=== PATIENT | male | born 1935 | race Caucasian/White ===

== ENCOUNTER 2017-11-29 08:25 | Inpatient (IN) | payer MEDICARE, OTHER ==
[2017-11-29] MEDS ORDERED: Acetaminophen 500 MG Tab PO PRN (12:29)
[2017-11-29] MEDS ORDERED: Nitroglycerin 0.4 MG Tab.SL SL PRN (12:30)
[2017-11-29] MEDS: Aspirin 325 MG Tab.EC PO SCH (17:24)
[2017-11-29] MEDS: Insulin Aspart 100 Units/ML 3 ML Pen SUBCUT SCH (17:24)
[2017-11-29] MEDS ORDERED: Insulin Detemir 100 Units/ML 3 ML Pen SUBCUT ONE (21:00)
[2017-11-29] MEDS: Docusate Sodium 100 MG Cap PO SCH (21:03)
[2017-11-29] MEDS: atorvaSTATin 10 MG Tab PO SCH (21:04)
[2017-11-29] MEDS: Fluticasone Propionate Nasal Spray 16 GM Bottle NASBOTH SCH (21:04)
[2017-11-29] MEDS: Metoprolol Tartrate 25 MG Tab PO SCH (21:05)
[2017-11-29] MEDS: Acetaminophen/HYDROcodone 325-5 MG Tab PO PRN (21:18)
[2017-11-30] MEDS: Acetaminophen/HYDROcodone 325-5 MG Tab PO PRN ×4 (04:38→21:44)
[2017-11-30] MEDS: Pantoprazole 40 MG Tab.CR PO SCH (07:01)
[2017-11-30] MEDS: Insulin Aspart 100 Units/ML 3 ML Pen SUBCUT SCH ×3 (07:56→17:31)
[2017-11-30] MEDS: Aspirin 325 MG Tab.EC PO SCH ×2 (07:57→17:31)
[2017-11-30] MEDS: Docusate Sodium 100 MG Cap PO SCH ×2 (08:34→21:43)
[2017-11-30] MEDS: Metoprolol Tartrate 25 MG Tab PO SCH ×2 (08:34→21:43)
[2017-11-30] MEDS: Potassium Chloride 10 MEQ Tab.ER PO SCH (08:34)
[2017-11-30] MEDS: Furosemide 40 MG Tab PO SCH (08:34)
[2017-11-30] MEDS: Lisinopril 5 MG Tab PO SCH (08:35)
[2017-11-30] MEDS ORDERED: Aspirin 81 MG Tab.EC PO SCH (09:00)
[2017-11-30] MEDS ORDERED: Ezetimibe 10 MG Tab PO SCH (09:00)
[2017-11-30] MEDS: Fluticasone Propionate Nasal Spray 16 GM Bottle NASBOTH SCH (21:43)
[2017-11-30] MEDS: atorvaSTATin 10 MG Tab PO SCH (21:43)
[2017-11-30] MEDS: Insulin Detemir 100 Units/ML 3 ML Pen SUBCUT SCH (21:48)
[2017-12-01] MEDS: Acetaminophen/HYDROcodone 325-5 MG Tab PO PRN ×3 (07:20→23:07)
[2017-12-01] MEDS: Pantoprazole 40 MG Tab.CR PO SCH (07:20)
[2017-12-01] MEDS: Docusate Sodium 100 MG Cap PO SCH ×2 (08:29→21:13)
[2017-12-01] MEDS: Potassium Chloride 10 MEQ Tab.ER PO SCH (08:29)
[2017-12-01] MEDS: Aspirin 325 MG Tab.EC PO SCH ×2 (08:29→17:43)
[2017-12-01] MEDS: Furosemide 40 MG Tab PO SCH (08:29)
[2017-12-01] MEDS: Metoprolol Tartrate 25 MG Tab PO SCH ×2 (08:29→21:15)
[2017-12-01] MEDS: Insulin Aspart 100 Units/ML 3 ML Pen SUBCUT SCH ×3 (08:29→17:43)
[2017-12-01] MEDS: Lisinopril 5 MG Tab PO SCH (08:30)
--- NOTE | 2017-12-01 11:24 | PN ---
DATE SEEN: 12/01/2017 HISTORY OF PRESENT ILLNESS: Mr. Gooden is an 82-year-old male in swing bed for rehab, right total knee arthroplasty, doing well. Pain is controlled. LABORATORIES: None of significance. ANTICOAGULANT THERAPY: 2 aspirin daily. OBJECTIVE: VITAL SIGNS: 37.2, 76, 151/80, 18, and 94%. GENERAL: In good spirits. NECK: Benign. Thyroid small. CHEST: Clear in all lung esparza. HEART: Regularly irregular. ABDOMEN: Benign. EXTREMITIES: Wound healing without difficulty, ecchymoses appropriate. IMPRESSION: Postoperative care, wound surveillance, rehab, right total knee arthroplasty. PLAN: Medications, care and treatment appropriate. No changes required. Continue present therapy and plans. /[id number] [id number] DANELLE/BONI
[2017-12-01] MEDS: Fluticasone Propionate Nasal Spray 16 GM Bottle NASBOTH SCH (21:13)
[2017-12-01] MEDS: atorvaSTATin 10 MG Tab PO SCH (21:13)
[2017-12-01] MEDS: Insulin Detemir 100 Units/ML 3 ML Pen SUBCUT SCH (21:16)
[2017-12-02] MEDS: Pantoprazole 40 MG Tab.CR PO SCH (06:49)
[2017-12-02] MEDS: Acetaminophen/HYDROcodone 325-5 MG Tab PO PRN ×4 (06:51→21:02)
[2017-12-02] MEDS: Insulin Aspart 100 Units/ML 3 ML Pen SUBCUT SCH ×3 (08:14→17:55)
[2017-12-02] MEDS: Docusate Sodium 100 MG Cap PO SCH ×2 (08:21→20:59)
[2017-12-02] MEDS: Aspirin 325 MG Tab.EC PO SCH ×2 (08:21→17:57)
[2017-12-02] MEDS: Potassium Chloride 10 MEQ Tab.ER PO SCH (08:22)
[2017-12-02] MEDS: Furosemide 40 MG Tab PO SCH (08:23)
[2017-12-02] MEDS: Metoprolol Tartrate 25 MG Tab PO SCH ×2 (08:23→21:00)
[2017-12-02] MEDS: Lisinopril 5 MG Tab PO SCH (08:24)
--- NOTE | 2017-12-02 10:44 | HP ---
ADMISSION DATE: 11/29/2017 HISTORY OF PRESENT ILLNESS: Nazario Gooden is an 82-year-old male, [place] resident, who was admitted in transfer from [facility] in [place]. Underwent elective right total knee arthroplasty on 11/26/2017 under the care of Dr. Oliva. Preoperative indications are appropriate, discharged in good condition. To be admitted to [facility] for rehab purposes. Happy with surgery. Outcome was good. Pain today 2 out of 3. HOME MEDICATIONS: Please see med recall list. ALLERGIES: No medication, environmental, or latex allergies. PAST MEDICAL HISTORY: Significant for previous right rotator cuff tear and a biopsy of a right neck lesion, by report benign. He has had a previous remote hand fracture. Chronic illnesses include insulin-dependant type 2 diabetes mellitus, hyperlipidemia, hyperurecemia, compensated congestive heart failure. History of intermittent atrial fibrillation, Coumadin therapy prior to surgery. SOCIAL HISTORY: Retired. is 74. 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 Three boys, 2 daughters, 12 grandchildren. Smoked remotely, quit in 1976. Alcohol, an issue in the past, not at present. No illicit drug use. FAMILY HISTORY: Unremarkable. REVIEW OF SYSTEMS: CONSTITUTIONAL: Feeling generally well. Little weak and tired. EYES: Sees well. EARS: Some difficulty in crowds, mild tinnitus. OROPHARYNX: Intact dentition. No loose teeth. CHEST: No cough, wheeze, or congestion. CARDIOVASCULAR: Denies chest pain, palpitations, or syncope. GI: Stools are a little bit loose. : Nocturia x1. No blood in urine. SKIN: No open sores or lesions. ENDOCRINE: No excessive thirst, urination, diabetes on board. PSYCHIATRIC: Mood stable. PHYSICAL EXAMINATION: VITAL SIGNS: Stable. Weight is 103.8 kg, 36.8 degrees Fahrenheit, pulse 79, blood pressure 148/83, mean blood pressure 104, O2 saturation 95% on room air, respirations 18. GENERAL: Young man, cooperative, conversant, sitting in his wheelchair. HEENT: Funduscopic benign. Conjunctivae clear. Bright tympanic membranes. Decreased hearing. Clear nasal discharge. Mouth and oropharynx clear. Fair dentition. NECK: Benign. Thyroid is small. Previous surgical scar well healed. No adenopathy. No carotid bruits. CHEST: Clear in all lung esparza. HEART: Distant heart sounds. Soft murmur present. ABDOMEN: Rotund without masses. AND RECTAL: Deferred. EXTREMITIES: Knee high SHANI stockings in place, peripheral pulses diminished but present. Sterile dressing over the right surgical knee wound, minimal ecchymosis. PSYCHIATRIC: Mentation thought process intact. LABORATORY STUDIES: EKG to be performed to assess rhythm. ASSESSMENT: 1. Right total knee arthroplasty, postoperative care. 2. Diabetes mellitus. 3. Hypertension. 4. Hyperlipidemia. 5. Compensated congestive heart failure. 6. Previous right rotator cuff tear. 7. Intermittent atrial fibrillation. PLAN: Spoke with the discharging physician from [facility] about postoperative DVT prophylaxis. Dr. Oliva made it clear to the discharge provider that he wanted aspirin only for the 1st week and then Coumadin to be started at the end 1 week's time. We will do so according to plans. Other medications are adjusted accordingly, insulin on board. Therapy at present. Complementary care and well being. Short-term stay expected. /[id number] 2011 DANELLE/BONI Cc: Grace Tam.
--- NOTE | 2017-12-02 10:44 | PN ---
DATE SEEN: 11/30/2017 SUBJECTIVE: Nazario Gooden is an 82-year-old, male, seen today for review. Underwent total knee arthroplasty on 11/26/2017 at [facility]. Upon admission, his stated pain was 2 or 3. Doing well in the meantime. LABORATORY STUDIES OF SIGNIFICANCE: Sugars are comfortable at 110, 131, 46. MEDS: Reviewed and appropriate. OBJECTIVE: VITAL SIGNS: Stable. 36.4, 85, 139/79, 20, and 95%. GENERAL: In good spirits. CHEST: Clear. HEART: Regular. ABDOMEN: Benign. EXTREMITIES: Knee without pain. Dressing in place. Mild ecchymoses. SHANI stocking in place. ASSESSMENT: Swing bed care, total knee arthroplasty. PLAN: PT, OT. Complementary care and well being. Ice, analgesics as appropriate. Aspirin 325 b.i.d. Postoperative recommendations per Surgery, restart Coumadin next Saturday, i.e. 1 week postop. /[id number] 1153 /BONI
[2017-12-02] MEDS: Polyethylene Glycol 3350 Powder 17 GM Packet PO SCH (11:03)
--- NOTE | 2017-12-02 11:39 | PN ---
DATE SEEN: 12/02/2017 SUBJECTIVE: Nazario Gooden is an 82-year-old male, admitted to swing bed status post right total knee arthroplasty, doing well. Up ambulating, reasonably comfortable. PT and OT consult in place. OBJECTIVE: VITAL SIGNS: Stable. SKIN: Wound was without conflict. Moderate ecchymosis and edema. DIAGNOSIS: Total knee arthroplasty, rehab. PLAN: PT, OT, the patient requests addition of MiraLax for constipation. Complementary care and well being. /[id number] [id number] 1131 /RENL
[2017-12-02] MEDS: Fluticasone Propionate Nasal Spray 16 GM Bottle NASBOTH SCH (20:59)
[2017-12-02] MEDS: atorvaSTATin 10 MG Tab PO SCH (21:01)
[2017-12-02] MEDS: Insulin Detemir 100 Units/ML 3 ML Pen SUBCUT SCH (21:02)
[2017-12-03] MEDS: Acetaminophen/HYDROcodone 325-5 MG Tab PO PRN ×4 (06:21→21:43)
[2017-12-03] MEDS: Pantoprazole 40 MG Tab.CR PO SCH (06:21)
[2017-12-03] MEDS: Docusate Sodium 100 MG Cap PO SCH ×2 (08:07→21:27)
[2017-12-03] MEDS: Furosemide 40 MG Tab PO SCH (08:07)
[2017-12-03] MEDS: Potassium Chloride 10 MEQ Tab.ER PO SCH (08:07)
[2017-12-03] MEDS: Aspirin 325 MG Tab.EC PO SCH (08:07)
[2017-12-03] MEDS: Lisinopril 5 MG Tab PO SCH (08:08)
[2017-12-03] MEDS: Polyethylene Glycol 3350 Powder 17 GM Packet PO SCH (08:08)
[2017-12-03] MEDS: Metoprolol Tartrate 25 MG Tab PO SCH ×2 (08:08→21:28)
[2017-12-03] MEDS: Insulin Aspart 100 Units/ML 3 ML Pen SUBCUT SCH ×3 (08:09→17:42)
--- NOTE | 2017-12-03 13:42 | PN ---
DATE SEEN: 12/03/2017 SUBJECTIVE: Nazario Gooden is an 82-year-old male, status post right total knee arthroplasty. Procedure, 11/26/2017, [facility]. Doing well. There has been a moderate amount of redness on the lateral and medial aspect, extending dorsally. No particular complaints. Warm to touch. Infection of clinical concern. Transfer from aspirin to Coumadin will happen today, he has been on 5 mg 5 days per week and 2.5 two days per week. Therapy is happy with clinical observation. LABORATORY STUDIES: Sugars 149, 144, 158, 179, and 119. MEDICATIONS: Reviewed and appropriate. OBJECTIVE: As noted above, cellulitis resolved appearing. ASSESSMENT: Right total knee arthroplasty. Superficial infection. PLAN: Not systemically ill, intravenous antibiotics not indicated, oral antibiotics will proceed accordingly. Coumadin as instructed. /[id number] 1213 DANELLE/BONI
[2017-12-03] MEDS: Warfarin 5 MG Tab PO SCH (16:36)
[2017-12-03] MEDS: atorvaSTATin 10 MG Tab PO SCH (21:27)
[2017-12-03] MEDS: Fluticasone Propionate Nasal Spray 16 GM Bottle NASBOTH SCH (21:27)
[2017-12-03] MEDS: Insulin Detemir 100 Units/ML 3 ML Pen SUBCUT SCH (21:35)
[2017-12-04] MEDS: Acetaminophen/HYDROcodone 325-5 MG Tab PO PRN ×4 (05:38→19:56)
[2017-12-04] MEDS: Insulin Aspart 100 Units/ML 3 ML Pen SUBCUT SCH ×3 (08:10→17:59)
[2017-12-04] MEDS: Furosemide 40 MG Tab PO SCH (09:32)
[2017-12-04] MEDS: Potassium Chloride 10 MEQ Tab.ER PO SCH (09:32)
[2017-12-04] MEDS: Metoprolol Tartrate 25 MG Tab PO SCH ×2 (09:32→21:17)
[2017-12-04] MEDS: Polyethylene Glycol 3350 Powder 17 GM Packet PO SCH (09:32)
[2017-12-04] MEDS: Aspirin 81 MG Tab.EC PO SCH (09:32)
[2017-12-04] MEDS: Docusate Sodium 100 MG Cap PO SCH ×2 (09:32→21:22)
[2017-12-04] MEDS: Lisinopril 5 MG Tab PO SCH (09:33)
[2017-12-04] MEDS ORDERED: Warfarin Sliding Scale PO SCH (10:00)
--- NOTE | 2017-12-04 12:08 | PN ---
DATE SEEN: 12/04/2017 SUBJECTIVE: Mr. Gooden is an 82-year-old male, seen today for review. Underwent right total knee arthroplasty, 11/26/2017, doing well. Therapy is happy with outcome. Moderate redness seems to be subsiding, antibiotics on board. LABORATORY STUDIES: Glucose 192. PHYSICAL EXAMINATION: CHEST: Clear. HEART: Regular. ABDOMEN: Benign. Surgical site looks intact. IMPRESSION: Right total knee arthroplasty, no signs of complicated infection, on Coumadin therapy. PLAN: Medications, care, and treatment appropriate, intervention and care as required. /[id number] [id number] 1148 DANELLE/BONI
[2017-12-04] MEDS: Warfarin 5 MG Tab PO SCH (16:44)
[2017-12-04] MEDS: atorvaSTATin 10 MG Tab PO SCH (21:21)
[2017-12-04] MEDS: Fluticasone Propionate Nasal Spray 16 GM Bottle NASBOTH SCH (21:22)
[2017-12-04] MEDS: Insulin Detemir 100 Units/ML 3 ML Pen SUBCUT SCH (21:22)
[2017-12-05] MEDS: Acetaminophen/HYDROcodone 325-5 MG Tab PO PRN ×5 (00:37→20:36)
[2017-12-05] MEDS: Potassium Chloride 10 MEQ Tab.ER PO SCH (10:11)
[2017-12-05] MEDS: Aspirin 81 MG Tab.EC PO SCH (10:11)
[2017-12-05] MEDS: Docusate Sodium 100 MG Cap PO SCH ×2 (10:11→20:43)
[2017-12-05] MEDS: Furosemide 40 MG Tab PO SCH (10:11)
[2017-12-05] MEDS: Lisinopril 5 MG Tab PO SCH (10:12)
[2017-12-05] MEDS: Metoprolol Tartrate 25 MG Tab PO SCH ×2 (10:12→20:43)
[2017-12-05] MEDS: Insulin Aspart 100 Units/ML 3 ML Pen SUBCUT SCH ×3 (10:13→18:08)
[2017-12-05] MEDS: Polyethylene Glycol 3350 Powder 17 GM Packet PO SCH (10:19)
--- NOTE | 2017-12-05 14:45 | PN ---
DATE SEEN: 12/05/2017 SUBJECTIVE: Mr. Gooden is an 82-year-old male, seen today for followup. Swing bed stay, right total knee arthroplasty. Moderate redness, improved. Ambulation is better. Pain has been minimal in nature. Worse in the morning. PT is going successfully without complicating issue. Medications reviewed. Timing appropriate. Sugars are complementary, 137, 209, 132, and medications reviewed. PHYSICAL EXAMINATION: VITAL SIGNS: 130/78, 96 is the mean, pulse 76, respirations 18, and O2 saturation is 98%. GENERAL: Good spirits. NECK: Benign. Thyroid small. CHEST: Clear in all lung esparza. HEART: Regular. ABDOMEN: Benign. EXTREMITIES: Surgical scar, right knee without conflict, healing well. DIAGNOSIS: Rehabilitation, right total knee arthroplasty, superficial phlebitis. PLAN: Medications will be continued including dicloxacillin. Complementary care and well-being. Plan discharge, Saturday. /[id number] [id number] 1302 DANELLE/BONI
[2017-12-05] MEDS: Warfarin 5 MG Tab PO SCH (16:24)
[2017-12-05] MEDS: Fluticasone Propionate Nasal Spray 16 GM Bottle NASBOTH SCH (20:42)
[2017-12-05] MEDS: atorvaSTATin 10 MG Tab PO SCH (20:43)
[2017-12-05] MEDS: Insulin Detemir 100 Units/ML 3 ML Pen SUBCUT SCH (20:51)
[2017-12-06] MEDS: Acetaminophen/HYDROcodone 325-5 MG Tab PO PRN ×2 (00:50→05:47)
[2017-12-06] MEDS: Insulin Aspart 100 Units/ML 3 ML Pen SUBCUT SCH (08:00)
[2017-12-06] MEDS: Docusate Sodium 100 MG Cap PO SCH (08:01)
[2017-12-06] MEDS: Aspirin 81 MG Tab.EC PO SCH (08:03)
[2017-12-06] MEDS: Potassium Chloride 10 MEQ Tab.ER PO SCH (08:06)
[2017-12-06] MEDS: Furosemide 40 MG Tab PO SCH (08:06)
[2017-12-06] MEDS: Lisinopril 5 MG Tab PO SCH (08:07)
[2017-12-06] MEDS: Polyethylene Glycol 3350 Powder 17 GM Packet PO SCH (08:07)
[2017-12-06] MEDS: Metoprolol Tartrate 25 MG Tab PO SCH (08:07)
[2017-12-06 08:13] VITALS: BP 143/79
--- NOTE | 2017-12-06 13:50 | DISCH ---
DISCHARGE DATE: 12/06/2017 REASON FOR ADMISSION: 1. Right total knee arthroplasty, postoperative care. 2. Type 2 diabetes. 3. Hypertension. 4. Hyperlipidemia. 5. CHF, compensated. 6. Paroxysmal atrial fibrillation. BRIEF HISTORY AND HOSPITAL COURSE: This is an 82-year-old male who had a total knee arthroplasty on the right and he was admitted here for rehab and physical therapy. He has a history of type 2 diabetes, hypertension, and hyperlipidemia that are previously stable and he is deemed stable to go back to his own home with outpatient physical therapy. There were several changes to medications while he was here. Insulin was changed to 40 units of Levemir at night. NovoLog was changed to 4 units with every meal. He was continued on Coumadin, metoprolol, lisinopril, and was discharged home on hydrocodone to use one tablet every 6 hours p.r.n. for pain. Aspirin will be continued also at 81 mg a day. He was started on dicloxacillin 500 mg q.i.d. and has done three days before for cellulitis. This will be continued to complete a total of 10 days. His INR will be due to be checked on Saturday, the as well. He is to see his physician for followup. Please note that I spent more than 35 minutes in discharge of this patient. /[id number] 1151 GELY/BONI
== END 2017-12-06 10:55 | disposition home or self-care (01) | DRG 560 ==
LOC: FB.MS 12:24
PROVIDERS: ADMIT Family Medicine; ATTEND Family Medicine
DX: Z47.1 Aftercare following joint replacement surgery (principal); L03.115 Cellulitis of right lower limb; Z96.651 Presence of right artificial knee joint; Z98.890 Other specified postprocedural states; E11.9 Type 2 diabetes mellitus without complications; I10 Essential (primary) hypertension; E78.5 Hyperlipidemia, unspecified; I50.9 Heart failure, unspecified; I48.0 Paroxysmal atrial fibrillation; Z87.891 Personal history of nicotine dependence; Z79.4 Long term (current) use of insulin; Z79.82 Long term (current) use of aspirin; K59.00 Constipation, unspecified; Z79.2 Long term (current) use of antibiotics
CPT/HCPCS: 36415; 82962; 85610; 93005; 97110-GP; 97116-GP; 97161-GP; 97165-GO; 97530-GO; 97535-GO; A9270-GY

== ENCOUNTER 2017-12-26 09:52 | Emergency (ER) | payer MEDICARE, OTHER ==
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
[2017-12-26 13:26] VITALS: BP 163/87
== END 2017-12-26 13:21 | disposition home or self-care (01) ==
LOC: FB.ED 09:52
DX: E11.22 Type 2 diabetes mellitus with diabetic chronic kidney disease (principal); I12.9 Hypertensive chronic kidney disease with stage 1 through stage 4 chronic kidney disease, or unspecified chronic kidney disease; N18.9 Chronic kidney disease, unspecified; I48.91 Unspecified atrial fibrillation; I25.2 Old myocardial infarction; Z79.01 Long term (current) use of anticoagulants; Z79.899 Other long term (current) drug therapy; Z79.4 Long term (current) use of insulin
CPT/HCPCS: 36415; 80048; 82962; 99284

== ENCOUNTER 2020-01-26 05:35 | Day surgery (SDC) | payer MEDICARE, OTHER ==
[~2020-01-26 05:35] MED LIST: Sodium Chloride 0.9% 10 ML Syringe FLUSH PRN
[2020-01-26] MEDS ORDERED: Glycopyrrolate 0.2 MG/ML 5 ML MDV IV ONE (05:36)
[2020-01-26] MEDS ORDERED: fentaNYL 100 MCG/2 ML SDV IV ONE (05:36)
[2020-01-26] MEDS ORDERED: Midazolam 1 MG/ML 2 ML SDV IV ONE (05:36)
[2020-01-26] MEDS ORDERED: Lactated Ringers 1,000 ML IV SCH (08:00)
[2020-01-26] MEDS ORDERED: acetaZOLAMIDE 500 MG Cap.ER PO ONE (08:30)
[2020-01-26 08:53] VITALS: BP 117/56; PULSE 71
--- NOTE | 2020-01-26 11:47 | OR ---
DATE OF OPERATION: 01/26/2020 SURGEON: Lalitha Torres MD PREOPERATIVE DIAGNOSES: 1. Visually significant cataract, left eye. 2. Floppy iris syndrome, left eye. POSTOPERATIVE DIAGNOSES: 1. Visually significant cataract, left eye. 2. Floppy iris syndrome, left eye. PROCEDURES PERFORMED: Complex phacoemulsification with intraocular lens placement, left eye, CPT 50130. ASSISTANTS: None. ANESTHESIA: Local with sedation. COMPLICATIONS: None. BLOOD LOSS: None. IMPLANTS: ACU0T0 19.0 diopter lens implanted. CDE: 2.99. DESCRIPTION OF PROCEDURE: After risks and benefits were reviewed with the patient, consent was obtained in the preoperative area, and the operative eye was marked with a surgical pen. In the preoperative area, a pledget was used to dilate the pupil consisting of a mixture of phenylephrine 10%, cyclopentolate 2%, moxifloxacin 0.5%, and bupivacaine 0.75%. The patient was taken to the operating room, where a time-out was performed, and the patient was placed under monitored anesthesia care. Topical tetracaine was used for anesthesia. The operative eye was prepped and draped for ophthalmic surgery, and the microscope was brought into position and focused. A paracentesis incision was made, followed by injection of preservative-free 1% lidocaine into the anterior chamber, followed by injection of Viscoat into the anterior chamber. A Malyugin ring 6.25 mm was used to retract the iris due to poor pupillary dilation and floppy iris syndrome. A microkeratome blade was used to make a corneal limbal incision temporally. A cystotome was used to make the beginning of the capsulorrhexis, which was carried around 360 degrees in a curvilinear fashion using Utrata forceps. A Barton cannula with BSS was used to hydrodissect and hydrodelineate the nucleus. Iris prolapse was noted due to posterior pressure from abdominal obesity and more reverse Trendelenburg positioning due to patient's neck kyphosis. The bed was then adjusted, and the iris was repositioned. The nucleus was removed in a divide and conquer manner using phacoemulsification. Irrigation and aspiration were used to remove the remaining cortical material. Provisc was used to inflate the capsular bag, and a pre-loaded ACU0T0 19.0 diopter lens, serial number #[id number] was injected into the capsular bag. A Sinskey hook was used to position and center the lens. The Malyugin ring was removed from the anterior chamber and discarded. Next, irrigation and aspiration was used to remove any remaining viscoelastic and cortical material from the anterior chamber. BSS on a cannula was used to inflate the anterior chamber and hydrate the wound. The wound was checked and found to be watertight. 1 mg of Moxifloxacin was injected into the anterior chamber. Drapes were removed and the eye was cleaned. A drop of brimonidine 0.15% and a drop of TobraDex was placed. The eye was shielded, and the patient was taken to the recovery room in stable condition. /[id number] MONSERRAT/BONI CC: YASHIRA GARCIA NP MTDD
== END 2020-01-26 09:15 | disposition home or self-care (01) ==
LOC: FB.SDS 05:35
PROVIDERS: ATTEND Ophthalmology
DX: E11.36 Type 2 diabetes mellitus with diabetic cataract (principal); H25.812 Combined forms of age-related cataract, left eye; H35.3132 Nonexudative age-related macular degeneration, bilateral, intermediate dry stage; H21.81 Floppy iris syndrome; Z96.1 Presence of intraocular lens; H47.091 Other disorders of optic nerve, not elsewhere classified, right eye; E11.22 Type 2 diabetes mellitus with diabetic chronic kidney disease; N18.3 Chronic kidney disease, stage 3 (moderate); I12.9 Hypertensive chronic kidney disease with stage 1 through stage 4 chronic kidney disease, or unspecified chronic kidney disease; E66.01 Morbid (severe) obesity due to excess calories; G47.33 Obstructive sleep apnea (adult) (pediatric); Z79.899 Other long term (current) drug therapy; Z79.82 Long term (current) use of aspirin; Z99.89 Dependence on other enabling machines and devices; Z87.891 Personal history of nicotine dependence; Z68.41 Body mass index [BMI] 40.0-44.9, adult
CPT/HCPCS: 00142-QZ; 82962; J2250; J3010; J3490; J7120; V2632

== ENCOUNTER 2021-03-08 08:25 | Emergency (ER) | payer MEDICARE, OTHER ==
[2021-03-08] MEDS ORDERED: Lidocaine 1% with EPINEPHrine 1:100,000 20 ML MDV INJECT ONE (08:44)
--- NOTE | 2021-03-08 08:50 | EDM.PDOC ---
ED HPI GENERAL MEDICAL PROBLEM - General Chief Complaint: Upper Extremity Injury/Pain Stated Complaint: L ARM PAIN Time Seen by Provider: 03/08/21 08:35 Source of Information: Reports: Patient, Old Records History Limitations: Reports: No Limitations - History of Present Illness INITIAL COMMENTS - FREE TEXT/NARRATIVE: 85 yo male comes in today for L elbow pain and redness that began early yesterday. The pain has made it hard for him to get out of a chair. He is usually quite dependent on his arm strength to assist with getting out of a chair. There was no injury. He has had gout in the past, but not in this area. Due to the L elbow pain he is not using his L arm/hand and a as a result the L hand has become puffy. He denies fever or chills. He is not more SOB than usual. Since his last visit here to the ER his warfarin has been replaced with Xarelto. Onset: Gradual Onset Date: 03/07/21 Duration: Day(s): (1+), Getting Worse Location: Reports: Upper Extremity, Left Quality: Reports: Ache, Throbbing Severity: Moderate Improves with: Reports: Rest Worsens with: Reports: Movement Context: Reports: Other (see HPI) Associated Symptoms: Reports: No Other Symptoms Treatments CAP BLOCKER: Reports: Other (see below) (none) Left arm and elbow Pain Score (Numeric/FACES): 8 - Related Data Allergies Allergy/AdvReac Type Severity Reaction Status Date / Time ENVIRONMENTAL Allergy Other Uncoded 03/08/21 09:32 Home Meds: Home Meds Acetaminophen [Pain Reliever] 1,000 mg PO BID 08/20/14 [History] Fluticasone Propionate [Flonase] 1 spray NASBOTH BEDTIME 08/20/14 [History] Glucosam/Chondr-Msm1/D3/C/Norbert [Glucosamine-Chondr Complx Cplt] 1 each PO DAILY 08/20/14 [History] Potassium Chloride [Klor-Con 10] 10 meq PO DAILY 08/20/14 [History] atorvaSTATin [Lipitor] 30 mg PO BEDTIME 08/20/14 [History] Ascorbic Acid [Vitamin C] 1,000 mg PO BID 11/29/17 [History] C/Sourcherry/Celery/Grape Seed [Tart Kelsey] 1 cap PO DAILY 11/29/17 [History] Cholecalciferol (Vitamin D3) [Vitamin D3] 2,000 unit PO DAILY 11/29/17 [History] Docusate Sodium 200 mg PO BID 11/29/17 [History] Furosemide [Lasix] 40 mg PO DAILY@1400 11/29/17 [History] Lisinopril 5 mg PO DAILY 11/29/17 [History] Metoprolol Tartrate 25 mg PO BID 11/29/17 [History] Mv-Mn/Lutein/Zeax/Bilber/Hb277 [Macular Health Formula Capsule] 1 cap PO Q48H 11/29/17 [History] Triamcinolone Acetonide [Triamcinolone Acetonide 0.1% Crm] 1 applic TOP BID 11/12 03/01 [History] Vitamin E (Dl,Tocopheryl Acet) [Vitamin E] 1,000 units PO DAILY 11/29/17 [History] Warfarin [Coumadin] 2.5 mg PO MOTH 12/03/17 [History] Warfarin [Coumadin] 5 mg PO SUTUWEFRSA 12/03/17 [History] Aspirin [Halfprin] 81 mg PO DAILY 12/04/17 [History] Acetaminophen/HYDROcodone [HYDROcodone-Acetaminophen 5-325 MG *] 1 tab PO Q6H PRN #30 tablet 12/06/17 [Rx] Dicloxacillin 500 mg PO Q6H #54 cap 12/06/17 [Rx] Docusate Sodium [Colace] 100 mg PO BID #20 cap 12/06/17 [Rx] Furosemide [Lasix] 40 mg PO DAILY #30 tablet 12/06/17 [Rx] Insulin Aspart [Novolog Flexpen] 4 unit SQ TIDMEALS #5 pen 12/06/17 [Rx] Insulin Detemir [Levemir] 60 unit SUBCUT BEDTIME #5 pen 12/06/17 [Rx] Nitroglycerin [Nitrostat] 0.4 mg SL Q5M PRN tab.sl 12/06/17 [Rx] Warfarin [Coumadin] 5 mg PO 1600 tablet 12/06/17 [Rx] polyethylene glycoL 3350 [MiraLAX] 17 gm PO DAILY packet 12/06/17 [Rx] Apixaban [Eliquis] 5 mg PO DAILY 01/26/20 [History] Insulin Glargine,Hum.Rec.Anlog [Carmen Jaimes] 60 unit SUBCUT DAILY 01/26/20 [History] Past Medical History HEENT History: Reports: Cataract, Hard of Hearing, Impaired Vision, Other (See Below) Other HEENT History: RIGHT CATARACT ONLY DONE. Cardiovascular History: Reports: Afib, High Cholesterol, Hypertension, [place], SOB on Exertion, Other (See Below) Respiratory History: Reports: Pneumonia, Recurrent, Sleep Apnea Gastrointestinal History: Reports: Cholelithiasis, Chronic Constipation Genitourinary History: Reports: Chronic Renal Insuffiency Other Genitourinary History: kidney disease Musculoskeletal History: Reports: Arthritis, Back Pain, Chronic, Gout Other Musculoskeletal History: arthritis R knee Neurological History: Reports: Other (See Below) Other Neuro History: bells palsy Psychiatric History: Reports: Addiction, Other (See Below) Other Psychiatric History: Hx ETOH abuse Endocrine/Metabolic History: Reports: Diabetes, Type II, IDDM Other Endocrine/Metabolic History: ON INSULIN NOW Dermatologic History: Reports: Cellulitis - Infectious Disease History Infectious Disease History: Reports: Chicken Pox, Measles - Past Surgical History HEENT Surgical History: Reports: Cataract Surgery, Oral Surgery Other Cardiovascular Surgeries/Procedures: OCTOBER 2015 HAD A HEART ATTACK Respiratory Surgical History: Reports: None GI Surgical History: Reports: Appendectomy, Cholecystectomy, Colonoscopy Male Surgical History: Reports: Other (See Below) Other Male Surgeries/Procedures: ON THE BORDERLINE FOR KIDNEY FAILURE AT ONE TIME. PT SEE'S KIDNEY SPECIALIST EVERY 6 MONTHS FOR THIS. Musculoskeletal Surgical History: Reports: Carpal Tunnel, Knee Replacement, Shoulder Surgery, Other (See Below) Other Musculoskeletal Surgeries/Procedures:: ULNAR NERVE SURGERY SO 5 TH DIGIT ON LEFT HAND COMPLETELY NUMB NOW. RIGHT TOTAL KNEE 11/26/17 Social & Family History - Family History Family Medical History: No Pertinent Family History - Caffeine Use Caffeine Use: Reports: Coffee, Soda, Tea Review of Systems - Review of Systems Review Of Systems: See Below Constitutional: Reports: No Symptoms Eyes: Reports: No Symptoms Ears: Reports: No Symptoms Nose: Reports: No Symptoms Mouth/Throat: Reports: No Symptoms Respiratory: Reports: Shortness of Breath (not worse than usual) Cardiovascular: Reports: No Symptoms Musculoskeletal: Reports: Shoulder Pain (minimal), Joint Pain (significant L elbow pain progressive starting yesterday morning. ), Joint Swelling (L elbow swollen and slightly reddened.). Denies: Hand Pain (L hand swollen from disuse, not painful. ) Skin: Reports: Erythema (L elbow) Neurological: Reports: No Symptoms Psychiatric: Reports: No Symptoms ED EXAM, GENERAL - Physical Exam Exam: See Below Exam Limited By: No Limitations General Appearance: Alert, WD/WN, No Apparent Distress, Obese Eye Exam: Bilateral Eye: Normal Inspection Ears: Normal External Exam, Normal Canal, Hearing Loss (mild). No: Hearing Grossly Normal Ear Exam: Bilateral Ear: Auricle Normal, Canal Normal Nose: Normal Inspection, No Blood Throat/Mouth: Normal Inspection, Normal Lips, Normal Oropharynx, Normal Voice, No Airway Compromise Head: Atraumatic, Normocephalic Neck: Normal Inspection Respiratory/Chest: No Respiratory Distress, Lungs Clear, Normal Breath Sounds, No Accessory Muscle Use Cardiovascular: Regular Rate, Rhythm, No Edema, Tachycardia Extremities: Pedal Edema (both LE's and LUE.), Joint Swelling (slight L elbow swelling. ), Arm Pain (L elbow with mild pain on palpation, considerable pain with movement. ), Limited Range of Motion (L elbow due to pain. ), Increased Warmth (slight increased warmth of the L elbow), Redness (L elbow slightly red), Other (L ring finger has a wedding band in place that has enough edema that he may not be able to remove it. Offered to remove. Patient not yet concerned. ). No: No Pedal Edema, Toi's Sign Neurological: Alert, Oriented, CN II-XII Intact, Normal Cognition, No Motor/Sensory Deficits Psychiatric: Normal Affect, Normal Mood Skin Exam: Warm, Dry, Intact, No Rash, Erythema (L elbow only.). No: Normal Color #1 Interpretation EKG Date: 03/08/21 Time: 08:20 Rhythm: NSR Rate (Beats/Min): 104 [place]: Normal P-Wave: Present QRS: Normal ST-T: Normal QT: Normal Comparison: Change From Previous EKG (rate change of 32/min. No other changes noted.) Course - Vital Signs Text/Narrative:: Case discussed with [facility], recommends transfer to them iif not able to tap his elbow under fluoro here. No antibiotics advised in the interim. Last Recorded V/S: Last Vital Signs Temp 36.7 C 03/08/21 08:30 Pulse 107 H 03/08/21 08:30 Resp 19 03/08/21 08:30 BP 134/88 03/08/21 08:30 Pulse Ox 94 L 03/08/21 08:30 - Orders/Labs/Meds Orders: Active Orders 24 hr Category Date Time Status NS + KCl 20mEq/L [Normal Saline with 20 mEq KCl] 1,000 Med 03/08/21 09:45 Active ml IV ASDIRECTED Sodium Chloride 0.9% [Saline Flush] Med 03/08/21 09:40 Active 10 ml FLUSH ASDIRECTED PRN Saline Lock Insert [OM.PC] Routine Oth 03/08/21 09:40 Ordered EKG 12 Lead [EK] Routine Ther 03/08/21 08:48 Ordered Medication Orders Potassium Chloride/Sodium Chloride (Normal Saline With 20 Meq Kcl) 1,000 mls @ 500 mls/hr IV ASDIRECTED SEAN Last Infusion: 03/08/21 11:04 Dose: 999 mls/hr Documented by: Admin: 03/08/21 09:43 Dose: 500 mls/hr Documented by: ANSELMO Sodium Chloride (Sodium Chloride 0.9% 10 Ml Syringe) 10 ml FLUSH ASDIRECTED PRN PRN Reason: Keep Vein Open Last Admin: 03/08/21 09:44 Dose: 10 ml Documented by: ANSELMO Labs: Laboratory Tests 03/08/21 03/08/21 03/08/21 Range/Units 09:10 09:10 09:10 WBC 11.2 H (3.2-10.1) x10-3/uL RBC 5.36 (3.90-5.90) x10(6)uL Hgb 14.5 (12.9-17.7) g/dL Hct 44.3 (38.3-50.1) % MCV 82.7 (80.8-98.7) fL MCH 27.1 (27.0-33.3) pg MCHC 32.8 (28.7-35.3) g/dL RDW 15.7 H (12.4-15.0) % Plt Count 214 (117-477) x10(3)uL Sodium 144 (135-145) mmol/L Potassium 3.5 (3.5-5.3) mmol/L Chloride 104 (100-110) mmol/L Carbon Dioxide 25 (21-32) mmol/L BUN 40 H D (7-18) mg/dL Creatinine 1.7 H (0.70-1.30) mg/dL Est Cr Clr Drug Dosing 28.64 mL/min Estimated GFR (MDRD) 39 L (>60) BUN/Creatinine Ratio 23.5 H (9-20) Glucose 206 H D (80-116) mg/dL Calcium 8.8 (8.6-10.2) mg/dL Magnesium (1.8-2.5) mg/dL Troponin I (4.0-60.3) pg/mL C-Reactive Protein 13.9 H* (0.5-0.9) mg/dL 03/08/21 03/08/21 Range/Units 09:10 09:10 WBC (3.2-10.1) x10-3/uL RBC (3.90-5.90) x10(6)uL Hgb (12.9-17.7) g/dL Hct (38.3-50.1) % MCV (80.8-98.7) fL MCH (27.0-33.3) pg MCHC (28.7-35.3) g/dL RDW (12.4-15.0) % Plt Count (117-477) x10(3)uL Sodium (135-145) mmol/L Potassium (3.5-5.3) mmol/L Chloride (100-110) mmol/L Carbon Dioxide (21-32) mmol/L BUN (7-18) mg/dL Creatinine (0.70-1.30) mg/dL Est Cr Clr Drug Dosing mL/min Estimated GFR (MDRD) (>60) BUN/Creatinine Ratio (9-20) Glucose (80-116) mg/dL Calcium (8.6-10.2) mg/dL Magnesium 1.6 L (1.8-2.5) mg/dL Troponin I 13.1 (4.0-60.3) pg/mL C-Reactive Protein (0.5-0.9) mg/dL Meds: Medications Generic Name Dose Route Start Last Admin Trade Name Freq PRN Reason Stop Dose Admin Potassium Chloride/Sodium Chloride 1,000 mls @ 500 mls/hr 03/08/21 09:45 03/08/21 11:04 Normal Saline With 20 Meq Kcl IV 999 mls/hr ASDIRECTED SEAN Infusion Sodium Chloride 10 ml 03/08/21 09:40 03/08/21 09:44 Sodium Chloride 0.9% 10 Ml Syringe FLUSH 10 ml ASDIRECTED PRN Administration Keep Vein Open Discontinued Medications Generic Name Dose Route Start Last Admin Trade Name Freq PRN Reason Stop Dose Admin Lidocaine/Epinephrine 3 ml 03/08/21 08:44 03/08/21 11:17 Lidocaine 1% With Epinephrine 1:100,000 20 Ml Mdv INJECT 03/08/21 08:45 Not Given ONETIME ONE Magnesium Oxide 800 mg 03/08/21 10:48 03/08/21 11:04 Magnesium Oxide 400 Mg Tab PO 03/08/21 10:49 800 mg ONETIME ONE Administration Oxycodone/Acetaminophen 1 tab 03/08/21 08:54 03/08/21 09:00 Acetaminophen/Oxycodone 325-5 Mg Tab PO 03/08/21 08:55 1 tab ONETIME STA Administration - Radiology Interpretation Free Text/Narrative:: L elbow X-ray-Some degen changes, effusion present Departure - Departure Time of Disposition: 11:35 Disposition: DC/Tfer to Acute Hospital 02 Condition: Fair Clinical Impression: Swelling of left elbow joint, Constriction ring of upper extremity, Hypomagnesemia, Mild dehydration Chronic renal failure, stage 3 (moderate) Qualifiers: Chronic kidney disease stage 3 subtype: stage 3b (GFR 30-44) Qualified Code(s): N18.32 - Chronic kidney disease, stage 3b - Discharge Information *PRESCRIPTION DRUG MONITORING PROGRAM REVIEWED*: Not Applicable *COPY OF PRESCRIPTION DRUG MONITORING REPORT IN PATIENT CHRISTOPHER: Not Applicable Referrals: Lo Tam [employer] [Primary Care Provider] - Forms: ED Department Discharge Additional Instructions: Go directly to the [facility] ER to be seen for your potentially infected elbow. Take your lab work along with you. Sepsis Event Note (ED) - Focused Exam Vital Signs: Vital Signs Temp Pulse Resp BP Pulse Ox 03/08/21 08:30 36.7 C 107 H 19 134/88 94 L - My Orders Last 24 Hours: My Active Orders 03/08/21 08:48 EKG 12 Lead [EK] Routine 03/08/21 09:40 Sodium Chloride 0.9% [Saline Flush] 10 ml FLUSH ASDIRECTED PRN Saline Lock Insert [OM.PC] Routine 03/08/21 09:45 NS + KCl 20mEq/L [Normal Saline with 20 mEq KCl] 1,000 ml IV ASDIRECTED - Assessment/Plan Last 24 Hours: My Active Orders 03/08/21 08:48 EKG 12 Lead [EK] Routine 03/08/21 09:40 Sodium Chloride 0.9% [Saline Flush] 10 ml FLUSH ASDIRECTED PRN Saline Lock Insert [OM.PC] Routine 03/08/21 09:45 NS + KCl 20mEq/L [Normal Saline with 20 mEq KCl] 1,000 ml IV ASDIRECTED
[2021-03-08] MEDS ORDERED: Acetaminophen/oxyCODONE 325-5 MG Tab PO STA (08:54)
[2021-03-08] MEDS ORDERED: Sodium Chloride 0.9% 10 ML Syringe FLUSH PRN (09:40)
[2021-03-08] MEDS ORDERED: NS + KCl 20mEq/L 1,000 ML IV SCH (09:45)
--- NOTE | 2021-03-08 10:17 | CR ---
INDICATION: Pain, swelling, redness. LEFT ELBOW: Three views of the left elbow revealed evidence of a joint effusion at the elbow with distention of the joint capsule. Hypertrophic degenerative changes are noted at the medial elbow joint compartment of moderate degree with some narrowing of the medial elbow joint space. Very minimal degenerative hypertrophic change is seen at the lateral elbow joint compartment. Small spur is noted off the posterior cranial aspect of the olecranon process with some minimal calcification which could be on the basis of dystrophic soft tissue calcification in that area due to a previous injury. A definite acute fracture or dislocation was not identified. IMPRESSION: Osteoarthritis with joint effusion. Report was given in person at time of the examination to Dr. Mendoza. [facility]
[2021-03-08] MEDS ORDERED: Magnesium Oxide 400 MG Tab PO ONE (10:48)
[2021-03-08 20:43] VITALS: BP 131/81; PULSE 98
== END 2021-03-08 12:00 ==
LOC: FB.ED 08:25
DX: M79.89 Other specified soft tissue disorders (principal); E86.0 Dehydration; E83.42 Hypomagnesemia; Q89.8 Other specified congenital malformations; I48.91 Unspecified atrial fibrillation; E78.00 Pure hypercholesterolemia, unspecified; E11.22 Type 2 diabetes mellitus with diabetic chronic kidney disease; I12.9 Hypertensive chronic kidney disease with stage 1 through stage 4 chronic kidney disease, or unspecified chronic kidney disease; N18.32 Chronic kidney disease, stage 3b; I25.2 Old myocardial infarction; Z91.09 Other allergy status, other than to drugs and biological substances; Z79.82 Long term (current) use of aspirin; Z79.01 Long term (current) use of anticoagulants; Z79.899 Other long term (current) drug therapy
CPT/HCPCS: 36415; 73080; 80048; 83735; 84484; 85027; 86140; 93005; 99284; A9270; J3480

== ENCOUNTER 2021-06-01 17:40 | Emergency (ER) | payer MEDICARE, OTHER ==
[2021-06-01] MEDS ORDERED: Cyclobenzaprine 10 MG Tab PO STA (18:06)
[2021-06-01] MEDS ORDERED: Acetaminophen/oxyCODONE 325-5 MG Tab PO STA (18:06)
[2021-06-01] MEDS ORDERED: Ketorolac 30 MG/ML SDV IM STA (18:06)
--- NOTE | 2021-06-01 18:53 | EDM.PDOC ---
ED HPI GENERAL MEDICAL PROBLEM - General Stated Complaint: GENERAL PAIN Time Seen by Provider: 06/01/21 17:55 Source of Information: Reports: Patient, Family History Limitations: Reports: No Limitations - History of Present Illness INITIAL COMMENTS - FREE TEXT/NARRATIVE: Patient presented to the ED because of polyarthralgia which started today. He is hurting on the ankle,knee,wrist and back. There is no recent trauma or injury. He has a history of DJD. - Related Data Allergies Allergy/AdvReac Type Severity Reaction Status Date / Time ENVIRONMENTAL Allergy Other Uncoded 03/08/21 09:32 Home Meds: Home Meds Acetaminophen [Pain Reliever] 1,000 mg PO BID 08/20/14 [History] Fluticasone Propionate [Flonase] 1 spray NASBOTH BEDTIME 08/20/14 [History] Glucosam/Chondr-Msm1/D3/C/Norbert [Glucosamine-Chondr Complx Cplt] 1 each PO DAILY 08/20/14 [History] Potassium Chloride [Klor-Con 10] 10 meq PO DAILY 08/20/14 [History] atorvaSTATin [Lipitor] 30 mg PO BEDTIME 08/20/14 [History] Ascorbic Acid [Vitamin C] 1,000 mg PO BID 11/29/17 [History] C/Sourcherry/Celery/Grape Seed [Tart Kelsey] 1 cap PO DAILY 11/29/17 [History] Cholecalciferol (Vitamin D3) [Vitamin D3] 2,000 unit PO DAILY 11/29/17 [History] Docusate Sodium 200 mg PO BID 11/29/17 [History] Furosemide [Lasix] 40 mg PO DAILY@1400 11/29/17 [History] Lisinopril 5 mg PO DAILY 11/29/17 [History] Metoprolol Tartrate 25 mg PO BID 11/29/17 [History] Mv-Mn/Lutein/Zeax/Bilber/Hb277 [Macular Health Formula Capsule] 1 cap PO Q48H 11/29/17 [History] Triamcinolone Acetonide [Triamcinolone Acetonide 0.1% Crm] 1 applic TOP BID 11/29/17 [History] Vitamin E (Dl,Tocopheryl Acet) [Vitamin E] 1,000 units PO DAILY 11/29/17 [History] Warfarin [Coumadin] 2.5 mg PO MOTH 12/03/17 [History] Warfarin [Coumadin] 5 mg PO SUTUWEFRSA 12/03/17 [History] Aspirin [Halfprin] 81 mg PO DAILY 12/04/17 [History] Acetaminophen/HYDROcodone [HYDROcodone-Acetaminophen 5-325 MG *] 1 tab PO Q6H PRN #30 tablet 12/06/17 [Rx] Dicloxacillin 500 mg PO Q6H #54 cap 12/06/17 [Rx] Docusate Sodium [Colace] 100 mg PO BID #20 cap 12/06/17 [Rx] Furosemide [Lasix] 40 mg PO DAILY #30 tablet 12/06/17 [Rx] Insulin Aspart [Novolog Flexpen] 4 unit SQ TIDMEALS #5 pen 12/06/17 [Rx] Insulin Detemir [Levemir] 60 unit SUBCUT BEDTIME #5 pen 12/06/17 [Rx] Nitroglycerin [Nitrostat] 0.4 mg SL Q5M PRN tab.sl 12/06/17 [Rx] Warfarin [Coumadin] 5 mg PO 1600 tablet 12/06/17 [Rx] polyethylene glycoL 3350 [MiraLAX] 17 gm PO DAILY packet 12/06/17 [Rx] Apixaban [Eliquis] 5 mg PO DAILY 01/26/20 [History] Insulin Glargine,Hum.Rec.Anlog [Toujeo Solostar] 60 unit SUBCUT DAILY 01/26/20 [History] traMADol [Ultram] 50 mg PO Q6H PRN #30 tab 06/01/21 [Rx] Past Medical History HEENT History: Reports: Cataract, Hard of Hearing, Impaired Vision, Other (See Below) Other HEENT History: RIGHT CATARACT ONLY DONE. Cardiovascular History: Reports: Afib, High Cholesterol, Hypertension, [place], SOB on Exertion, Other (See Below) Respiratory History: Reports: Pneumonia, Recurrent, Sleep Apnea Gastrointestinal History: Reports: Cholelithiasis, Chronic Constipation Genitourinary History: Reports: Chronic Renal Insuffiency Other Genitourinary History: kidney disease Musculoskeletal History: Reports: Arthritis, Back Pain, Chronic, Gout Other Musculoskeletal History: arthritis R knee Neurological History: Reports: Other (See Below) Other Neuro History: bells palsy Psychiatric History: Reports: Addiction, Other (See Below) Other Psychiatric History: Hx ETOH abuse Endocrine/Metabolic History: Reports: Diabetes, Type II, IDDM Other Endocrine/Metabolic History: ON INSULIN NOW Dermatologic History: Reports: Cellulitis - Infectious Disease History Infectious Disease History: Reports: Chicken Pox, Measles - Past Surgical History HEENT Surgical History: Reports: Cataract Surgery, Oral Surgery Other Cardiovascular Surgeries/Procedures: OCTOBER 2015 HAD A HEART ATTACK Respiratory Surgical History: Reports: None GI Surgical History: Reports: Appendectomy, Cholecystectomy, Colonoscopy Male Surgical History: Reports: Other (See Below) Other Male Surgeries/Procedures: ON THE BORDERLINE FOR KIDNEY FAILURE AT ONE TIME. PT SEE'S KIDNEY SPECIALIST EVERY 6 MONTHS FOR THIS. Musculoskeletal Surgical History: Reports: Carpal Tunnel, Knee Replacement, Shoulder Surgery, Other (See Below) Other Musculoskeletal Surgeries/Procedures:: ULNAR NERVE SURGERY SO 5 TH DIGIT ON LEFT HAND COMPLETELY NUMB NOW. RIGHT TOTAL KNEE 11/26/17 Social & Family History - Family History Family Medical History: No Pertinent Family History - Caffeine Use Caffeine Use: Reports: Coffee ED ROS GENERAL - Review of Systems Review Of Systems: See Below Constitutional: Reports: No Symptoms HEENT: Reports: No Symptoms Respiratory: Reports: No Symptoms Cardiovascular: Reports: No Symptoms Endocrine: Reports: No Symptoms GI/Abdominal: Reports: No Symptoms : Reports: No Symptoms Musculoskeletal: Reports: Joint Pain, Muscle Pain Skin: Reports: No Symptoms Neurological: Reports: No Symptoms Psychiatric: Reports: No Symptoms ED EXAM, GENERAL - Physical Exam Exam: See Below Exam Limited By: No Limitations General Appearance: Alert, No Apparent Distress Eye Exam: Bilateral Eye: PERRL Ears: Normal External Exam, Normal Canal Nose: Normal Inspection, Normal Mucosa, No Blood Throat/Mouth: Normal Inspection, Normal Lips, Normal Teeth, Normal Oropharynx, Normal Voice Head: Atraumatic, Normocephalic Neck: Normal Inspection, Supple, Non-Tender, Full Range of Motion Respiratory/Chest: No Respiratory Distress, Lungs Clear, Normal Breath Sounds, No Accessory Muscle Use, Chest Non-Tender Cardiovascular: Normal Peripheral Pulses, Regular Rate, Rhythm, No Edema, No Gallop, No JVD, No Murmur, No Rub GI/Abdominal: Normal Bowel Sounds, Soft, Non-Tender, No Organomegaly, No Distention, No Abnormal Bruit, No Mass Back Exam: Normal Inspection, Full Range of Motion Extremities: Normal Inspection, Normal Range of Motion, Non-Tender, Other (ployarthralgia) Neurological: Alert, Oriented, CN II-XII Intact Course - Vital Signs Text/Narrative:: Toradol 30 mg IM x1 Percocet 5 mg, 2 PO x1 Flexeril 10 mg PO x1 Last Recorded V/S: Last Vital Signs Temp 37.3 C 06/01/21 17:40 Pulse 125 H 06/01/21 17:40 Resp 24 H 06/01/21 17:40 BP 165/94 H 06/01/21 17:40 Pulse Ox 95 06/01/21 17:40 - Orders/Labs/Meds Orders: Active Orders 24 hr Category Date Time Status EKG 12 Lead [EK] Routine Ther 06/01/21 17:50 Ordered Meds: Medications Discontinued Medications Generic Name Dose Route Start Last Admin Trade Name Freq PRN Reason Stop Dose Admin Cyclobenzaprine HCl 10 mg 06/01/21 18:06 06/01/21 18:30 Cyclobenzaprine 10 Mg Tab PO 06/01/21 18:07 10 mg NOW STA Administration Ketorolac Tromethamine 30 mg 06/01/21 18:06 06/01/21 18:30 Ketorolac 30 Mg/Ml Sdv IM 06/01/21 18:07 30 mg NOW STA Administration Oxycodone/Acetaminophen 2 tab 06/01/21 18:06 06/01/21 18:57 Acetaminophen/Oxycodone 325-5 Mg Tab PO 06/01/21 18:07 2 tab NOW STA Administration Departure - Departure Time of Disposition: 19:00 Disposition: Home, Self-Care 01 Condition: Good Clinical Impression: Polyarthralgia, Polyarthritis - Discharge Information Prescriptions: traMADol [Ultram] 50 mg PO Q6H PRN #30 tab PRN Reason: Pain Instructions: Arthritis, [id number] Referrals: Lo Tam [employer]ICAL [employer]ICE TECHNICIAN [Primary Care Provider] - Forms: ED Department Discharge Additional Instructions: Please read discharge instructions on arthritis and pain Take tramadol 50 mg with tylenol 500 mg every 6 hours as needed for pain Follow up as needed Sepsis Event Note (ED) - Focused Exam Vital Signs: Vital Signs Temp Pulse Resp BP Pulse Ox 06/01/21 17:40 37.3 C 125 H 24 H 165/94 H 95 - My Orders Last 24 Hours: My Active Orders 06/01/21 17:50 EKG 12 Lead [EK] Routine - Assessment/Plan Last 24 Hours: My Active Orders 06/01/21 17:50 EKG 12 Lead [EK] Routine
[2021-06-01 19:01] VITALS: BP 165/94; PULSE 125
--- NOTE | 2021-06-01 20:35 | PCM.EKG ---
#1 Interpretation EKG Date: 06/01/21 Time: 17:56 Rhythm: Other (Sinus Tach) Rate (Beats/Min): 124 [place]: Normal P-Wave: Present QRS: Normal ST-T: Normal QT: Normal ID/PQ Interval: 159 Comparison: No Change EKG Interpretation Comments: Sinus Tach Inferior Infarct-old
== END 2021-06-01 19:30 | disposition home or self-care (01) ==
LOC: FB.ED 17:40
DX: M13.0 Polyarthritis, unspecified (principal); I48.91 Unspecified atrial fibrillation; E78.00 Pure hypercholesterolemia, unspecified; I12.9 Hypertensive chronic kidney disease with stage 1 through stage 4 chronic kidney disease, or unspecified chronic kidney disease; I25.2 Old myocardial infarction; E11.22 Type 2 diabetes mellitus with diabetic chronic kidney disease; N18.9 Chronic kidney disease, unspecified; Z79.899 Other long term (current) drug therapy; Z79.01 Long term (current) use of anticoagulants; Z79.4 Long term (current) use of insulin
CPT/HCPCS: 93005; 96372; 99283-25; A9270-GY; J1885

== ENCOUNTER 2021-11-29 09:12 | Emergency (ER) | payer MEDICARE, OTHER ==
[2021-11-29 11:21] VITALS: BP 120/70; PULSE 61
== END 2021-11-29 11:45 | disposition home or self-care (01) ==
LOC: FB.ED 09:12
DX: M66.9 Spontaneous rupture of unspecified tendon (principal); I48.91 Unspecified atrial fibrillation; E78.00 Pure hypercholesterolemia, unspecified; I10 Essential (primary) hypertension; I25.2 Old myocardial infarction; Z88.8 Allergy status to other drugs, medicaments and biological substances; Z79.4 Long term (current) use of insulin; Z79.899 Other long term (current) drug therapy
CPT/HCPCS: 29515; 73610-LT; 99282; 99283-25

== ENCOUNTER 2022-02-07 10:55 | Inpatient (IN) | payer MEDICARE, OTHER ==
[2022-02-07] MEDS ORDERED: Acetaminophen 500 MG Tab PO ONE (11:58)
[2022-02-07] MEDS ORDERED: Sodium Chloride 0.9% 500 ML IV ONE (12:00)
[2022-02-07 12:28] LABS: ESTIMATED GFR 18 mL/min (>60)
[2022-02-07] MEDS: Potassium Chloride 20 MEQ Tab.ER PO SCH ×3 (12:41→21:17)
[2022-02-07] MEDS ORDERED: Magnesium Sulfate/Water 2 GM in Premix Bag 1 BAG IV ONE (12:43)
[2022-02-07] MEDS ORDERED: Azithromycin 500 MG in Sodium Chloride 0.9% 250 ML IV SCH (12:45)
[2022-02-07] MEDS: cefTRIAXone 1 GM Vial IVPUSH SCH (12:47)
[2022-02-07 14:35] LABS: CORONAVIRUS COVID-19 NAA NEGATIVE (NEGATIVE)
[2022-02-07] MEDS ORDERED: Ondansetron 4 MG/2 ML SDV IV PRN (17:08)
[2022-02-07] MEDS ORDERED: Magnesium Hydroxide 400 MG/5 ML Susp 30 ML Cup PO PRN (17:08)
[2022-02-07] MEDS ORDERED: Zolpidem 5 MG Tab PO PRN (17:08)
[2022-02-07] MEDS ORDERED: Bisacodyl 5 MG Tab PO PRN (17:08)
[2022-02-07] MEDS ORDERED: Cetirizine 10 MG Tab PO PRN (17:20)
[2022-02-07] MEDS ORDERED: Insulin Lispro 100 Unit/ML 3 ML KwikPen SUBCUT SCH ×2 (17:30→18:00)
[2022-02-07] MEDS ORDERED: D5 1/2 NS w/ 20 mEq/L KCl 1,000 ML IV SCH (17:30)
[2022-02-07] MEDS ORDERED: Insulin Lispro 100 Unit/ML 3 ML KwikPen SUBCUT ONE ×2 (17:58→21:19)
[2022-02-07] MEDS ORDERED: atorvaSTATin 20 MG Tab PO SCH (21:00)
[2022-02-07] MEDS ORDERED: Glucagon,Human Recombinant 1 MG Vial IM PRN (21:19)
[2022-02-07] MEDS ORDERED: 50% Dextrose in Water 50 ML Syringe IVPUSH PRN (21:19)
[2022-02-07] MEDS: Apixaban 2.5 MG Tab PO SCH (21:41)
[2022-02-07] MEDS: Sodium Chloride 0.9% 1,000 ML IV SCH (22:59)
[2022-02-08] MEDS: Acetaminophen 325 MG Tab PO PRN ×3 (05:22→20:31)
[2022-02-08 07:18] LABS: ESTIMATED GFR 25 mL/min (>60)
[2022-02-08] MEDS ORDERED: Omeprazole 20 MG Cap.CR PO SCH (07:30)
[2022-02-08] MEDS ORDERED: Insulin Lispro 100 Unit/ML 3 ML KwikPen SUBCUT SCH (08:00)
[2022-02-08] MEDS ORDERED: Pantoprazole 40 MG Vial IVPUSH SCH ×2 (09:00)
[2022-02-08] MEDS: Potassium Chloride 20 MEQ Tab.ER PO SCH ×2 (10:06→20:31)
[2022-02-08] MEDS: Aspirin 81 MG Tab.EC PO SCH (10:06)
[2022-02-08] MEDS: Magnesium Oxide 400 MG Tab PO SCH (10:06)
[2022-02-08] MEDS: Apixaban 2.5 MG Tab PO SCH ×2 (10:08→20:30)
[2022-02-08] MEDS: Lisinopril 2.5 MG Tab PO SCH (10:08)
[2022-02-08] MEDS: Tamsulosin 0.4 MG Cap.ER PO SCH (10:09)
[2022-02-08] MEDS: Pantoprazole 40 MG Tab.CR PO SCH (10:09)
[2022-02-08] MEDS: Insulin Lispro 100 Unit/ML 3 ML KwikPen SUBCUT SCH ×3 (10:10→18:05)
[2022-02-08] MEDS ORDERED: Insulin Glargine,Human Rec. Analog 100 Units/ML 3 ML Pen SUBCUT ONE (10:16)
[2022-02-08] MEDS: Insulin Glargine,Human Rec. Analog 100 Units/ML 3 ML Pen SUBCUT SCH (10:18)
[2022-02-08] MEDS: Sodium Chloride 0.9% 1,000 ML IV SCH ×2 (10:20→19:00)
[2022-02-08] MEDS: cefTRIAXone 1 GM Vial IVPUSH SCH (12:23)
[2022-02-08] MEDS: atorvaSTATin 10 MG Tab PO SCH (20:31)
[2022-02-08] MEDS ORDERED: Insulin Lispro 100 Unit/ML 3 ML KwikPen SUBCUT ONE (22:30)
[2022-02-09] MEDS: Acetaminophen 325 MG Tab PO PRN ×4 (01:30→22:15)
[2022-02-09] MEDS: Sodium Chloride 0.9% 1,000 ML IV SCH (04:22)
[2022-02-09] MEDS: Pantoprazole 40 MG Tab.CR PO SCH (05:00)
[2022-02-09 06:36] LABS: ESTIMATED GFR 32 mL/min (>60)
[2022-02-09] MEDS: Apixaban 2.5 MG Tab PO SCH ×2 (08:07→20:42)
[2022-02-09] MEDS: Tamsulosin 0.4 MG Cap.ER PO SCH (08:07)
[2022-02-09] MEDS: Aspirin 81 MG Tab.EC PO SCH (08:08)
[2022-02-09] MEDS: Potassium Chloride 20 MEQ Tab.ER PO SCH ×2 (08:08→20:42)
[2022-02-09] MEDS: Magnesium Oxide 400 MG Tab PO SCH (08:09)
[2022-02-09] MEDS: Lisinopril 2.5 MG Tab PO SCH (08:09)
[2022-02-09] MEDS: Insulin Lispro 100 Unit/ML 3 ML KwikPen SUBCUT SCH ×3 (08:15→18:01)
[2022-02-09] MEDS: Insulin Glargine,Human Rec. Analog 100 Units/ML 3 ML Pen SUBCUT SCH ×3 (08:18→20:45)
[2022-02-09] MEDS ORDERED: Glucagon,Human Recombinant 1 MG Vial IM PRN ×2 (08:49→08:50)
[2022-02-09] MEDS ORDERED: 50% Dextrose in Water 50 ML Syringe IVPUSH PRN ×2 (08:49→08:50)
[2022-02-09] MEDS: cefTRIAXone 1 GM Vial IVPUSH SCH (12:18)
[2022-02-09] MEDS: atorvaSTATin 10 MG Tab PO SCH (20:42)
[2022-02-10] MEDS: Acetaminophen 325 MG Tab PO PRN ×3 (05:50→21:14)
[2022-02-10] MEDS: Pantoprazole 40 MG Tab.CR PO SCH (05:50)
[2022-02-10 06:39] LABS: ESTIMATED GFR 37 mL/min (>60)
[2022-02-10] MEDS: Insulin Lispro 100 Unit/ML 3 ML KwikPen SUBCUT SCH ×3 (08:13→18:24)
[2022-02-10] MEDS: Insulin Glargine,Human Rec. Analog 100 Units/ML 3 ML Pen SUBCUT SCH ×2 (08:17→21:04)
[2022-02-10] MEDS: Apixaban 2.5 MG Tab PO SCH ×2 (08:20→20:56)
[2022-02-10] MEDS: Tamsulosin 0.4 MG Cap.ER PO SCH (08:20)
[2022-02-10] MEDS: Aspirin 81 MG Tab.EC PO SCH (08:21)
[2022-02-10] MEDS: Potassium Chloride 20 MEQ Tab.ER PO SCH ×2 (08:21→20:56)
[2022-02-10] MEDS: Lisinopril 2.5 MG Tab PO SCH (08:22)
[2022-02-10] MEDS: Magnesium Oxide 400 MG Tab PO SCH (08:22)
[2022-02-10] MEDS: cefTRIAXone 1 GM Vial IVPUSH SCH (14:56)
[2022-02-10] MEDS: Sodium Chloride 0.9% 10 ML Syringe FLUSH PRN (14:56)
[2022-02-10] MEDS: Betamethasone Dipropionate/Clotrimazole 0.05-1% Crm 45 GM Tube TOP SCH ×2 (15:51→20:55)
[2022-02-10] MEDS: atorvaSTATin 10 MG Tab PO SCH (20:56)
[2022-02-11] MEDS: Acetaminophen 325 MG Tab PO PRN ×3 (05:45→21:46)
[2022-02-11] MEDS: Pantoprazole 40 MG Tab.CR PO SCH (05:58)
[2022-02-11 06:56] LABS: ESTIMATED GFR 42 mL/min (>60)
[2022-02-11] MEDS: Insulin Lispro 100 Unit/ML 3 ML KwikPen SUBCUT SCH ×3 (08:23→18:34)
[2022-02-11] MEDS: Insulin Glargine,Human Rec. Analog 100 Units/ML 3 ML Pen SUBCUT SCH ×2 (08:30→21:42)
[2022-02-11] MEDS: Apixaban 2.5 MG Tab PO SCH ×2 (08:33→21:41)
[2022-02-11] MEDS: Tamsulosin 0.4 MG Cap.ER PO SCH (08:33)
[2022-02-11] MEDS: Aspirin 81 MG Tab.EC PO SCH (08:33)
[2022-02-11] MEDS: Magnesium Oxide 400 MG Tab PO SCH (08:33)
[2022-02-11] MEDS: Betamethasone Dipropionate/Clotrimazole 0.05-1% Crm 45 GM Tube TOP SCH ×2 (08:34→21:41)
[2022-02-11] MEDS: Potassium Chloride 20 MEQ Tab.ER PO SCH ×2 (08:34→21:41)
[2022-02-11] MEDS: Lisinopril 2.5 MG Tab PO SCH (08:35)
[2022-02-11] MEDS: Polyethylene Glycol 3350 Powder 17 GM Packet PO SCH ×2 (08:45→21:41)
[2022-02-11] MEDS: Sodium Chloride 0.9% 10 ML Syringe FLUSH PRN (12:30)
[2022-02-11] MEDS: cefTRIAXone 1 GM Vial IVPUSH SCH (12:30)
[2022-02-11] MEDS: atorvaSTATin 10 MG Tab PO SCH (21:41)
[2022-02-11] MEDS ORDERED: Insulin Glargine,Human Rec. Analog 100 Units/ML 3 ML Pen SUBCUT ONE (21:44)
[2022-02-12] MEDS: Pantoprazole 40 MG Tab.CR PO SCH (05:58)
[2022-02-12 06:56] LABS: ESTIMATED GFR 46 mL/min (>60)
[2022-02-12] MEDS: Betamethasone Dipropionate/Clotrimazole 0.05-1% Crm 45 GM Tube TOP SCH ×2 (08:16→20:51)
[2022-02-12] MEDS: Insulin Lispro 100 Unit/ML 3 ML KwikPen SUBCUT SCH ×3 (08:17→17:55)
[2022-02-12] MEDS: Aspirin 81 MG Tab.EC PO SCH (08:19)
[2022-02-12] MEDS: Apixaban 2.5 MG Tab PO SCH ×2 (08:19→20:49)
[2022-02-12] MEDS: Tamsulosin 0.4 MG Cap.ER PO SCH (08:19)
[2022-02-12] MEDS: Magnesium Oxide 400 MG Tab PO SCH (08:20)
[2022-02-12] MEDS: Potassium Chloride 20 MEQ Tab.ER PO SCH ×2 (08:20→20:50)
[2022-02-12] MEDS: Insulin Glargine,Human Rec. Analog 100 Units/ML 3 ML Pen SUBCUT SCH ×2 (08:23→20:57)
[2022-02-12] MEDS: Polyethylene Glycol 3350 Powder 17 GM Packet PO SCH ×2 (08:24→20:53)
[2022-02-12] MEDS: Lisinopril 2.5 MG Tab PO SCH (08:36)
[2022-02-12] MEDS ORDERED: Iopamidol 755 MG/ML 150 ML Bottle IV ONE (12:02)
[2022-02-12] MEDS: Sodium Chloride 0.9% 10 ML Syringe FLUSH PRN ×2 (13:27→13:37)
[2022-02-12] MEDS: cefTRIAXone 1 GM Vial IVPUSH SCH (13:28)
[2022-02-12] MEDS: Acetaminophen 325 MG Tab PO PRN (17:39)
[2022-02-12] MEDS: atorvaSTATin 10 MG Tab PO SCH (20:51)
[2022-02-13] MEDS: Pantoprazole 40 MG Tab.CR PO SCH (06:30)
[2022-02-13] MEDS ORDERED: Sodium Phosphate,Monobasic/Sodium Phosphate,Dibasic Enema 133 ML Bottle RECTAL ONE (08:04)
[2022-02-13] MEDS: Magnesium Oxide 400 MG Tab PO SCH (08:14)
[2022-02-13] MEDS: Potassium Chloride 20 MEQ Tab.ER PO SCH ×2 (08:15→20:48)
[2022-02-13] MEDS: Aspirin 81 MG Tab.EC PO SCH (08:15)
[2022-02-13] MEDS: Tamsulosin 0.4 MG Cap.ER PO SCH (08:15)
[2022-02-13] MEDS: Apixaban 2.5 MG Tab PO SCH ×2 (08:18→20:48)
[2022-02-13] MEDS: Lisinopril 2.5 MG Tab PO SCH (08:18)
[2022-02-13] MEDS: Polyethylene Glycol 3350 Powder 17 GM Packet PO SCH ×2 (08:19→20:48)
[2022-02-13] MEDS: Betamethasone Dipropionate/Clotrimazole 0.05-1% Crm 45 GM Tube TOP SCH ×2 (08:19→20:49)
[2022-02-13] MEDS: Insulin Glargine,Human Rec. Analog 100 Units/ML 3 ML Pen SUBCUT SCH ×2 (08:30→20:49)
[2022-02-13] MEDS: Insulin Lispro 100 Unit/ML 3 ML KwikPen SUBCUT SCH ×3 (08:32→17:55)
[2022-02-13] MEDS: atorvaSTATin 10 MG Tab PO SCH (20:48)
[2022-02-14] MEDS: Pantoprazole 40 MG Tab.CR PO SCH (05:04)
[2022-02-14 06:36] LABS: ESTIMATED GFR 46 mL/min (>60)
[2022-02-14] MEDS: Lisinopril 2.5 MG Tab PO SCH (08:30)
[2022-02-14] MEDS: Aspirin 81 MG Tab.EC PO SCH (08:30)
[2022-02-14] MEDS: Insulin Lispro 100 Unit/ML 3 ML KwikPen SUBCUT SCH ×3 (08:30→17:56)
[2022-02-14] MEDS: Potassium Chloride 20 MEQ Tab.ER PO SCH ×2 (08:30→20:37)
[2022-02-14] MEDS: Apixaban 2.5 MG Tab PO SCH ×2 (08:30→20:37)
[2022-02-14] MEDS: Magnesium Oxide 400 MG Tab PO SCH (08:30)
[2022-02-14] MEDS: Betamethasone Dipropionate/Clotrimazole 0.05-1% Crm 45 GM Tube TOP SCH ×2 (08:31→20:37)
[2022-02-14] MEDS: Insulin Glargine,Human Rec. Analog 100 Units/ML 3 ML Pen SUBCUT SCH ×2 (08:31→21:26)
[2022-02-14] MEDS: Polyethylene Glycol 3350 Powder 17 GM Packet PO SCH ×2 (08:31→20:37)
[2022-02-14] MEDS: Tamsulosin 0.4 MG Cap.ER PO SCH (08:31)
[2022-02-14] MEDS ORDERED: Magnesium Hydroxide 400 MG/5 ML Susp 30 ML Cup PO ONE (08:44)
[2022-02-14] MEDS: atorvaSTATin 10 MG Tab PO SCH (20:37)
[2022-02-15] MEDS: Pantoprazole 40 MG Tab.CR PO SCH (05:48)
[2022-02-15] MEDS: Betamethasone Dipropionate/Clotrimazole 0.05-1% Crm 45 GM Tube TOP SCH ×2 (08:58→20:31)
[2022-02-15] MEDS: Polyethylene Glycol 3350 Powder 17 GM Packet PO SCH ×2 (08:58→20:34)
[2022-02-15] MEDS: Apixaban 2.5 MG Tab PO SCH ×2 (08:59→20:33)
[2022-02-15] MEDS: Magnesium Oxide 400 MG Tab PO SCH (08:59)
[2022-02-15] MEDS: Tamsulosin 0.4 MG Cap.ER PO SCH (08:59)
[2022-02-15] MEDS: Aspirin 81 MG Tab.EC PO SCH (08:59)
[2022-02-15] MEDS: Lisinopril 2.5 MG Tab PO SCH (08:59)
[2022-02-15] MEDS: Potassium Chloride 20 MEQ Tab.ER PO SCH ×2 (09:00→20:33)
[2022-02-15] MEDS: Insulin Lispro 100 Unit/ML 3 ML KwikPen SUBCUT SCH ×3 (09:00→17:57)
[2022-02-15] MEDS: Insulin Glargine,Human Rec. Analog 100 Units/ML 3 ML Pen SUBCUT SCH ×2 (09:01→20:40)
[2022-02-15] MEDS: atorvaSTATin 10 MG Tab PO SCH (20:30)
[2022-02-15] MEDS ORDERED: Insulin Glargine,Human Rec. Analog 100 Units/ML 3 ML Pen SUBCUT ONE (20:44)
[2022-02-16] MEDS: Pantoprazole 40 MG Tab.CR PO SCH (05:45)
[2022-02-16 07:23] LABS: ESTIMATED GFR 46 mL/min (>60)
[2022-02-16] MEDS: Apixaban 2.5 MG Tab PO SCH (08:28)
[2022-02-16] MEDS: Aspirin 81 MG Tab.EC PO SCH (08:28)
[2022-02-16] MEDS: Insulin Lispro 100 Unit/ML 3 ML KwikPen SUBCUT SCH (08:28)
[2022-02-16] MEDS: Lisinopril 2.5 MG Tab PO SCH (08:29)
[2022-02-16] MEDS: Potassium Chloride 20 MEQ Tab.ER PO SCH (08:29)
[2022-02-16] MEDS: Tamsulosin 0.4 MG Cap.ER PO SCH (08:29)
[2022-02-16] MEDS: Magnesium Oxide 400 MG Tab PO SCH (08:32)
[2022-02-16] MEDS: Betamethasone Dipropionate/Clotrimazole 0.05-1% Crm 45 GM Tube TOP SCH (08:32)
[2022-02-16] MEDS: Insulin Glargine,Human Rec. Analog 100 Units/ML 3 ML Pen SUBCUT SCH (08:32)
[2022-02-16] MEDS: Polyethylene Glycol 3350 Powder 17 GM Packet PO SCH (08:32)
[2022-02-16 08:36] VITALS: BP 117/67
[2022-02-16 09:17] VITALS: PULSE 109
== END 2022-02-16 10:15 | disposition home or self-care (01) | DRG 683 ==
LOC: FB.ED 10:55 → FB.MS 15:36 → UNDOADMIN 15:36 → FB.MS 16:27
PROVIDERS: ADMIT Family Medicine; ATTEND Family Medicine
DX: N39.0 Urinary tract infection, site not specified (principal); N17.9 Acute kidney failure, unspecified; E87.2 Acidosis; E86.0 Dehydration; I13.0 Hypertensive heart and chronic kidney disease with heart failure and stage 1 through stage 4 chronic kidney disease, or unspecified chronic kidney disease; L03.113 Cellulitis of right upper limb; M62.82 Rhabdomyolysis; K59.01 Slow transit constipation; E87.6 Hypokalemia; E83.42 Hypomagnesemia; E66.01 Morbid (severe) obesity due to excess calories; G47.33 Obstructive sleep apnea (adult) (pediatric); E11.65 Type 2 diabetes mellitus with hyperglycemia; I25.10 Atherosclerotic heart disease of native coronary artery without angina pectoris; D64.9 Anemia, unspecified; E11.42 Type 2 diabetes mellitus with diabetic polyneuropathy; M35.3 Polymyalgia rheumatica; E88.09 Other disorders of plasma-protein metabolism, not elsewhere classified; N18.9 Chronic kidney disease, unspecified; H91.90 Unspecified hearing loss, unspecified ear; I48.91 Unspecified atrial fibrillation; M19.90 Unspecified osteoarthritis, unspecified site; E11.22 Type 2 diabetes mellitus with diabetic chronic kidney disease; M10.9 Gout, unspecified; I48.0 Paroxysmal atrial fibrillation; Z20.822 Contact with and (suspected) exposure to COVID-19; G47.30 Sleep apnea, unspecified; H54.7 Unspecified visual loss; G89.29 Other chronic pain; I12.9 Hypertensive chronic kidney disease with stage 1 through stage 4 chronic kidney disease, or unspecified chronic kidney disease; K76.0 Fatty (change of) liver, not elsewhere classified; E78.00 Pure hypercholesterolemia, unspecified; M17.11 Unilateral primary osteoarthritis, right knee; I25.2 Old myocardial infarction; Z86.19 Personal history of other infectious and parasitic diseases; Z68.38 Body mass index [BMI] 38.0-38.9, adult; Z79.899 Other long term (current) drug therapy; Z79.52 Long term (current) use of systemic steroids; F10.21 Alcohol dependence, in remission; Z91.09 Other allergy status, other than to drugs and biological substances; Z87.01 Personal history of pneumonia (recurrent); Z98.49 Cataract extraction status, unspecified eye; Z79.01 Long term (current) use of anticoagulants; Z90.49 Acquired absence of other specified parts of digestive tract; Z87.891 Personal history of nicotine dependence; Z28.311 Partially vaccinated for COVID-19; Z79.82 Long term (current) use of aspirin; Z79.4 Long term (current) use of insulin
CPT/HCPCS: 0241U; 36415; 71045; 71046; 74177; 80048; 80053; 81001; 82550; 82947; 83605; 83735; 83880; 85025; 85610; 86140; 87040; 87086; 93005; 93010; 94150; 94669; 96365; 96366; 96367; 96375; 97161-GP; 97165-GO; 97530-GO; 97530-GP; 97535-GO; 99284; 99285-25; A9270-GY; J0456; J0696; J1815; J1815-GY; J2405; J3475; J3480; J3490; J7030; J7040; J7050; Q9967; U0002

== ENCOUNTER 2022-03-26 09:56 | Emergency (ER) | payer MEDICARE, OTHER ==
[2022-03-26] MEDS ORDERED: Sodium Chloride 0.9% 10 ML Syringe FLUSH PRN (10:37)
[2022-03-26 10:56] LABS: ESTIMATED GFR 37 mL/min (>60)
[2022-03-26] MEDS ORDERED: Sodium Chloride 0.9% 500 ML IV ONE ×3 (11:09→12:51)
[2022-03-26] MEDS: Sodium Chloride 0.9% 1,000 ML IV SCH ×2 (11:32→12:15)
[2022-03-26] MEDS ORDERED: Acetaminophen 500 MG Tab PO ONE (11:56)
[2022-03-26] MEDS ORDERED: Hydrocortisone Sodium Succinate 100 MG/2 ML SDV IVPUSH ONE (14:24)
[2022-03-26] MEDS ORDERED: Piperacillin/Tazobactam 4.5 GM in Sodium Chloride 0.9% 100 ML IV ONE (14:27)
[2022-03-26] MEDS ORDERED: VANCOmycin 1.75 GM/350 ML 350 ML IV ONE (15:00)
[2022-03-26 15:01] VITALS: BP 107/63; PULSE 93
== END 2022-03-26 16:07 ==
LOC: FB.ED 09:56
DX: A41.9 Sepsis, unspecified organism (principal); R65.20 Severe sepsis without septic shock; N17.9 Acute kidney failure, unspecified; E86.0 Dehydration; R53.1 Weakness; M13.0 Polyarthritis, unspecified; E78.00 Pure hypercholesterolemia, unspecified; I10 Essential (primary) hypertension; I25.2 Old myocardial infarction; E11.9 Type 2 diabetes mellitus without complications; Z90.49 Acquired absence of other specified parts of digestive tract; Z91.048 Other nonmedicinal substance allergy status; Z79.899 Other long term (current) drug therapy; Z79.82 Long term (current) use of aspirin; Z79.4 Long term (current) use of insulin; Z79.01 Long term (current) use of anticoagulants; Z20.822 Contact with and (suspected) exposure to COVID-19
CPT/HCPCS: 36415; 70450; 71045; 80053; 81001; 83605; 83735; 83880; 84484; 85025; 86140; 87040; 93005; 96361; 96365; 96375; 99285; A9270; J1720; J2543; J3370; J7030; J7040; U0002

== ENCOUNTER 2023-05-01 16:46 | Inpatient (IN) | payer OTHER, MEDICARE ==
[2023-05-01] MEDS ORDERED: Acetaminophen 500 MG Tab PO ONE (17:09)
[2023-05-01 17:23] LABS: BLOOD UREA NITROGEN,BUN 20 mg/dL (7-18); BUN/CREATININE RATIO 14.3 (9-20); CALCIUM 9.1 mg/dL (8.6-10.2); CARBON DIOXIDE,CO2 30 mmol/L (21-32); CHLORIDE,CL 99 mmol/L (100-110); CREATININE 1.4 mg/dL (0.70-1.30); ESTIMATED GFR 49 mL/min (>60); GLUCOSE RANDOM 152 mg/dL (80-116); POTASSIUM,K 3.7 mmol/L (3.5-5.3); SODIUM,NA 138 mmol/L (135-145)
[2023-05-01 17:24] LABS: BASOPHILS PERCENT AUTO 0.5 % (0.3-3.8); EOSINOPHILS PERCENT AUTO 0.6 % (0.1-6.8); HEMATOCRIT 39.4 % (38.3-50.1); HEMOGLOBIN 12.9 g/dL (12.9-17.7); LYMPHOCYTES ABSOLUTE AUTO 0.5 x10-3/uL (0.5-4.5); LYMPHOCYTES PERCENT AUTO 8.5 % (15.8-45.3); MEAN CORPUSCULAR HEMOGLOBIN 27.7 pg (27.0-33.3); MEAN CORPUSCULAR HGB CONC 32.8 g/dL (28.7-35.3); MEAN CORPUSCULAR VOLUME 84.3 fL (80.8-98.7); MEAN PLATELET VOLUME 6.9 fL (6.7-11.0); MONOCYTES ABSOLUTE AUTO 0.4 x10-3/uL (0.0-1.2); MONOCYTES PERCENT AUTO 5.8 % (5.5-15.2); NEUTROPHILS ABSOLUTE AUTO 5.2 x10-3/uL (1.7-6.9); NEUTROPHILS PERCENT AUTO 84.6 % (40.3-71.8); PLATELET COUNT,PLT 321 x10(3)uL (117-477); RED BLOOD CELL COUNT 4.68 x10(6)uL (3.90-5.90); RED CELL DISTRIBUTION WIDTH 19.2 % (12.4-15.0); WHITE BLOOD CELL COUNT,WBC 6.2 x10-3/uL (3.2-10.1)
[2023-05-01 17:26] LABS: INR 1.07 (1.00-1.24)
[2023-05-01 17:30] LABS: A/G RATIO 0.7; ALANINE AMINOTRANSFERASE,ALT 15 U/L (12-36); ALBUMIN 2.8 g/dL (3.2-4.6); ALKALINE PHOSPHATASE 147 IU/L (56-112); ASPARTATE AMNIOTRANSFERASE,AST 11 IU/L (5-25); BILIRUBIN TOTAL 1.5 mg/dL (0.1-1.3); PROTEIN TOTAL,TP 7.1 g/dL (6.0-8.0)
[2023-05-01 17:33] LABS: TROPONIN I 20.5 pg/mL (4.0-60.3)
[2023-05-01 17:36] LABS: C-REACTIVE PROTEIN 2.82 mg/dL (<0.33)
[2023-05-01] MEDS ORDERED: Sodium Chloride 0.9% 500 ML IV ONE (17:46)
[2023-05-01 18:48] LABS: INFLUENZA A NAA NEGATIVE (NEGATIVE); INFLUENZA B NAA NEGATIVE (NEGATIVE); RESPIRATORY SYNCYTIAL VIR NAA NEGATIVE (NEGATIVE)
[2023-05-01 18:49] LABS: CORONAVIRUS COVID-19 NAA NEGATIVE (NEGATIVE)
[2023-05-01 19:24] LABS: BILIRUBIN,URINE NEGATIVE (NEGATIVE); GLUCOSE,URINE NORMAL (NORMAL); KETONES,URINE NEGATIVE (NEGATIVE); LEUKOCYTE ESTERASE,URINE NEGATIVE (NEGATIVE); NITRITE,URINE NEGATIVE (NEGATIVE); OCCULT BLOOD,URINE MODERATE (NEGATIVE); PROTEIN,URINE 30 mg/dL (NEGATIVE); UROBILINOGEN,URINE NORMAL (NEGATIVE)
[2023-05-01 19:35] LABS: APPEARANCE,URINE CLEAR (CLEAR); BACTERIA,URINE FEW (NS); COLOR,URINE YELLOW (YELLOW); HYALINE CASTS,URINE FEW (NS); RBC,URINE 0-5 (0-5); SQUAMOUS EPITHELIAL CELLS,UR FEW (NS,R,O); WBC,URINE 0-5 (0-5)
[2023-05-01] MEDS: cefTRIAXone 1 GM Vial IVPUSH SCH (19:55)
[2023-05-01] MEDS: Azithromycin 500 MG in Sodium Chloride 0.9% 250 ML IV SCH (20:00)
[2023-05-01] MEDS ORDERED: Magnesium Hydroxide 400 MG/5 ML Susp 30 ML Cup PO PRN (20:01)
[2023-05-01] MEDS ORDERED: Zolpidem 5 MG Tab PO PRN (20:01)
[2023-05-01] MEDS ORDERED: Ondansetron 4 MG/2 ML SDV IV PRN (20:01)
[2023-05-01] MEDS ORDERED: Furosemide 40 MG Tab PO SCH (20:15)
[2023-05-01] MEDS ORDERED: Dextrose 5%-0.45% NaCl 1,000 ML IV SCH (20:15)
[2023-05-01] MEDS ORDERED: atorvaSTATin 20 MG Tab PO SCH (21:00)
[2023-05-01] MEDS: Apixaban 2.5 MG Tab PO SCH (21:04)
[2023-05-01] MEDS: Gabapentin 100 MG Cap PO SCH (21:05)
[2023-05-01] MEDS: Acetaminophen 500 MG Tab PO SCH (21:05)
[2023-05-01] MEDS: Fluticasone NASAL Spray 16 GM Bottle NASBOTH SCH (21:36)
[2023-05-01] MEDS: Chondroitin/Glucosamine Cap PO SCH (21:36)
[2023-05-02] MEDS: Acetaminophen 500 MG Tab PO SCH ×5 (04:48→21:10)
[2023-05-02 06:39] LABS: BASOPHILS PERCENT AUTO 0.2 % (0.3-3.8); EOSINOPHILS PERCENT AUTO 0.4 % (0.1-6.8); HEMATOCRIT 36.7 % (38.3-50.1); LYMPHOCYTES ABSOLUTE AUTO 0.4 x10-3/uL (0.5-4.5); LYMPHOCYTES PERCENT AUTO 8.2 % (15.8-45.3); MEAN CORPUSCULAR HEMOGLOBIN 27.6 pg (27.0-33.3); MEAN CORPUSCULAR HGB CONC 32.7 g/dL (28.7-35.3); MEAN CORPUSCULAR VOLUME 84.2 fL (80.8-98.7); MEAN PLATELET VOLUME 7.2 fL (6.7-11.0); MONOCYTES ABSOLUTE AUTO 0.3 x10-3/uL (0.0-1.2); MONOCYTES PERCENT AUTO 5.9 % (5.5-15.2); NEUTROPHILS PERCENT AUTO 85.3 % (40.3-71.8); PLATELET COUNT,PLT 257 x10(3)uL (117-477); RED BLOOD CELL COUNT 4.36 x10(6)uL (3.90-5.90); RED CELL DISTRIBUTION WIDTH 19.7 % (12.4-15.0); WHITE BLOOD CELL COUNT,WBC 4.7 x10-3/uL (3.2-10.1)
[2023-05-02 06:47] LABS: BLOOD UREA NITROGEN,BUN 22 mg/dL (7-18); BUN/CREATININE RATIO 18.3 (9-20); CALCIUM 8.7 mg/dL (8.6-10.2); CARBON DIOXIDE,CO2 30 mmol/L (21-32); CHLORIDE,CL 103 mmol/L (100-110); CREATININE 1.2 mg/dL (0.70-1.30); EST CRCL DRUG DOSING (CG) 42.08 mL/min; ESTIMATED GFR 59 mL/min (>60); GLUCOSE RANDOM 160 mg/dL (80-116); POTASSIUM,K 3.5 mmol/L (3.5-5.3); SODIUM,NA 140 mmol/L (135-145)
[2023-05-02] MEDS ORDERED: Pantoprazole 40 MG Tab.CR PO SCH (07:30)
[2023-05-02] MEDS: predniSONE 20 MG Tab PO SCH (08:49)
[2023-05-02] MEDS: Cholecalciferol (Vitamin D3) 25 MCG Tab PO SCH (08:49)
[2023-05-02] MEDS: Furosemide 40 MG Tab PO SCH (08:49)
[2023-05-02] MEDS: Tamsulosin 0.4 MG Cap.ER PO SCH (08:51)
[2023-05-02] MEDS: Chondroitin/Glucosamine Cap PO SCH ×2 (08:51→20:48)
[2023-05-02] MEDS: Ferrous Sulfate 325 MG Tab PO SCH (08:51)
[2023-05-02] MEDS: Magnesium Oxide 400 MG Tab PO SCH (08:51)
[2023-05-02] MEDS: Aspirin 81 MG Tab.EC PO SCH (08:51)
[2023-05-02] MEDS: Apixaban 2.5 MG Tab PO SCH ×2 (08:51→20:47)
[2023-05-02] MEDS: Potassium Chloride 20 MEQ Tab.ER PO SCH (08:53)
[2023-05-02] MEDS: Lutein/Minerals/Vitamin C/Vitamin E Acetate Cap PO SCH (08:53)
[2023-05-02] MEDS: Cyanocobalamin (Vitamin B12) 1,000 MCG Tab PO SCH (08:53)
[2023-05-02] MEDS: Folic Acid 1 MG Tab PO SCH (08:54)
[2023-05-02] MEDS ORDERED: Insulin Glargine,Human Rec. Analog 100 Units/ML 3 ML Pen SUBCUT SCH (09:00)
[2023-05-02] MEDS ORDERED: Furosemide 40 MG Tab PO SCH (09:00)
[2023-05-02] MEDS: Azelastine Nasal Soln 30 ML Spray Bottle NASBOTH SCH (09:00)
[2023-05-02] MEDS ORDERED: Insulin Glargine,Human Rec. Analog 100 Units/ML 3 ML Pen SUBCUT ONE (09:09)
[2023-05-02] MEDS: cefTRIAXone 1 GM Vial IVPUSH SCH (20:29)
[2023-05-02] MEDS: Azithromycin 500 MG in Sodium Chloride 0.9% 250 ML IV SCH (20:31)
[2023-05-02] MEDS: Gabapentin 100 MG Cap PO SCH (20:47)
[2023-05-02] MEDS: atorvaSTATin 10 MG Tab PO SCH (20:48)
[2023-05-02] MEDS: Fluticasone NASAL Spray 16 GM Bottle NASBOTH SCH (20:48)
[2023-05-02] MEDS ORDERED: Acetaminophen 325 MG Tab PO PRN (21:18)
[2023-05-03] MEDS: Pantoprazole 40 MG Tab.CR PO SCH (05:31)
[2023-05-03 06:43] LABS: HEMATOCRIT 36.1 % (38.3-50.1); HEMOGLOBIN 11.9 g/dL (12.9-17.7); MEAN CORPUSCULAR HEMOGLOBIN 27.5 pg (27.0-33.3); MEAN CORPUSCULAR HGB CONC 32.9 g/dL (28.7-35.3); MEAN CORPUSCULAR VOLUME 83.6 fL (80.8-98.7); MEAN PLATELET VOLUME 7.2 fL (6.7-11.0); PLATELET COUNT,PLT 283 x10(3)uL (117-477); RED BLOOD CELL COUNT 4.32 x10(6)uL (3.90-5.90); RED CELL DISTRIBUTION WIDTH 19.2 % (12.4-15.0); WHITE BLOOD CELL COUNT,WBC 7.3 x10-3/uL (3.2-10.1)
[2023-05-03 06:47] LABS: BLOOD UREA NITROGEN,BUN 25 mg/dL (7-18); BUN/CREATININE RATIO 16.7 (9-20); CALCIUM 8.9 mg/dL (8.6-10.2); CARBON DIOXIDE,CO2 28 mmol/L (21-32); CHLORIDE,CL 102 mmol/L (100-110); CREATININE 1.5 mg/dL (0.70-1.30); EST CRCL DRUG DOSING (CG) 33.66 mL/min; ESTIMATED GFR 45 mL/min (>60); GLUCOSE RANDOM 191 mg/dL (80-116); POTASSIUM,K 3.5 mmol/L (3.5-5.3); SODIUM,NA 137 mmol/L (135-145)
[2023-05-03 07:19] LABS: BAND PERCENT MAN 4 % (0-6); LYMPHOCYTES PERCENT MAN 6 % (13-37); MONOCYTES PERCENT MAN 7 % (4-12); SEG NEUTROPHILS PERCENT MAN 83 % (46-82)
[2023-05-03 07:20] LABS: HYPERSEGMENTED NEUTROPHILS FEW; OVALOCYTES FEW; TOXIC GRANULATION MODERATE (NOT SEEN)
[2023-05-03] MEDS ORDERED: Methotrexate 2.5 MG Tab PO SCH (09:00)
[2023-05-03] MEDS: Potassium Chloride 20 MEQ Tab.ER PO SCH (09:26)
[2023-05-03] MEDS: Furosemide 80 MG Tab PO SCH (09:26)
[2023-05-03] MEDS: Aspirin 81 MG Tab.EC PO SCH (09:26)
[2023-05-03] MEDS: Cyanocobalamin (Vitamin B12) 1,000 MCG Tab PO SCH (09:26)
[2023-05-03] MEDS: Magnesium Oxide 400 MG Tab PO SCH (09:26)
[2023-05-03] MEDS: Chondroitin/Glucosamine Cap PO SCH ×2 (09:26→20:15)
[2023-05-03] MEDS: Ferrous Sulfate 325 MG Tab PO SCH (09:27)
[2023-05-03] MEDS: Apixaban 2.5 MG Tab PO SCH ×2 (09:27→20:15)
[2023-05-03] MEDS: Tamsulosin 0.4 MG Cap.ER PO SCH (09:27)
[2023-05-03] MEDS: Azelastine Nasal Soln 30 ML Spray Bottle NASBOTH SCH (09:27)
[2023-05-03] MEDS: predniSONE 20 MG Tab PO SCH (09:27)
[2023-05-03] MEDS: Folic Acid 1 MG Tab PO SCH (09:27)
[2023-05-03] MEDS: Cholecalciferol (Vitamin D3) 25 MCG Tab PO SCH (09:28)
[2023-05-03] MEDS: Insulin Glargine,Human Rec. Analog 100 Units/ML 3 ML Pen SUBCUT SCH (09:28)
[2023-05-03] MEDS ORDERED: Albuterol 0.083% 2.5 MG/3 ML Neb Soln NEB PRN (10:01)
[2023-05-03] MEDS: Sodium Chloride 0.9% 10 ML Syringe FLUSH PRN (19:55)
[2023-05-03] MEDS: cefTRIAXone 1 GM Vial IVPUSH SCH (19:56)
[2023-05-03] MEDS: Azithromycin 500 MG in Sodium Chloride 0.9% 250 ML IV SCH (20:05)
[2023-05-03] MEDS: Gabapentin 100 MG Cap PO SCH (20:14)
[2023-05-03] MEDS: atorvaSTATin 10 MG Tab PO SCH (20:16)
[2023-05-03] MEDS: Fluticasone NASAL Spray 16 GM Bottle NASBOTH SCH (20:16)
[2023-05-04] MEDS: Pantoprazole 40 MG Tab.CR PO SCH (06:09)
[2023-05-04 06:24] LABS: BASOPHILS PERCENT AUTO 0.1 % (0.3-3.8); HEMATOCRIT 36.2 % (38.3-50.1); LYMPHOCYTES ABSOLUTE AUTO 0.6 x10-3/uL (0.5-4.5); LYMPHOCYTES PERCENT AUTO 13.7 % (15.8-45.3); MEAN CORPUSCULAR HEMOGLOBIN 27.8 pg (27.0-33.3); MEAN CORPUSCULAR HGB CONC 33.1 g/dL (28.7-35.3); MEAN PLATELET VOLUME 7.3 fL (6.7-11.0); MONOCYTES ABSOLUTE AUTO 0.4 x10-3/uL (0.0-1.2); MONOCYTES PERCENT AUTO 9.3 % (5.5-15.2); NEUTROPHILS ABSOLUTE AUTO 3.3 x10-3/uL (1.7-6.9); NEUTROPHILS PERCENT AUTO 76.9 % (40.3-71.8); PLATELET COUNT,PLT 275 x10(3)uL (117-477); RED BLOOD CELL COUNT 4.31 x10(6)uL (3.90-5.90); RED CELL DISTRIBUTION WIDTH 19.6 % (12.4-15.0); WHITE BLOOD CELL COUNT,WBC 4.3 x10-3/uL (3.2-10.1)
[2023-05-04 06:27] LABS: BLOOD UREA NITROGEN,BUN 32 mg/dL (7-18); CALCIUM 9.2 mg/dL (8.6-10.2); CARBON DIOXIDE,CO2 26 mmol/L (21-32); CHLORIDE,CL 102 mmol/L (100-110); CREATININE 1.6 mg/dL (0.70-1.30); EST CRCL DRUG DOSING (CG) 31.56 mL/min; ESTIMATED GFR 42 mL/min (>60); GLUCOSE RANDOM 284 mg/dL (80-116); POTASSIUM,K 3.9 mmol/L (3.5-5.3); SODIUM,NA 136 mmol/L (135-145)
[2023-05-04] MEDS: predniSONE 20 MG Tab PO SCH (08:52)
[2023-05-04] MEDS: Ferrous Sulfate 325 MG Tab PO SCH (08:53)
[2023-05-04] MEDS: Folic Acid 1 MG Tab PO SCH (08:53)
[2023-05-04] MEDS: Apixaban 2.5 MG Tab PO SCH ×2 (08:53→20:38)
[2023-05-04] MEDS: Azelastine Nasal Soln 30 ML Spray Bottle NASBOTH SCH (08:53)
[2023-05-04] MEDS: Tamsulosin 0.4 MG Cap.ER PO SCH (08:53)
[2023-05-04] MEDS: Aspirin 81 MG Tab.EC PO SCH (08:54)
[2023-05-04] MEDS: Furosemide 40 MG Tab PO SCH (08:54)
[2023-05-04] MEDS: Potassium Chloride 20 MEQ Tab.ER PO SCH (08:54)
[2023-05-04] MEDS: Chondroitin/Glucosamine Cap PO SCH ×2 (08:54→20:39)
[2023-05-04] MEDS: Cholecalciferol (Vitamin D3) 25 MCG Tab PO SCH (08:55)
[2023-05-04] MEDS: Lutein/Minerals/Vitamin C/Vitamin E Acetate Cap PO SCH (08:55)
[2023-05-04] MEDS: Magnesium Oxide 400 MG Tab PO SCH (08:55)
[2023-05-04] MEDS: Cyanocobalamin (Vitamin B12) 1,000 MCG Tab PO SCH (08:55)
[2023-05-04] MEDS: Insulin Glargine,Human Rec. Analog 100 Units/ML 3 ML Pen SUBCUT SCH (08:59)
[2023-05-04] MEDS: Sodium Chloride 0.9% 10 ML Syringe FLUSH PRN (20:20)
[2023-05-04] MEDS: cefTRIAXone 1 GM Vial IVPUSH SCH (20:20)
[2023-05-04] MEDS: Azithromycin 500 MG in Sodium Chloride 0.9% 250 ML IV SCH (20:23)
[2023-05-04] MEDS: Gabapentin 100 MG Cap PO SCH (20:38)
[2023-05-04] MEDS: Fluticasone NASAL Spray 16 GM Bottle NASBOTH SCH (20:38)
[2023-05-04] MEDS: atorvaSTATin 10 MG Tab PO SCH (20:39)
[2023-05-05] MEDS: Pantoprazole 40 MG Tab.CR PO SCH (06:17)
[2023-05-05 06:47] LABS: BASOPHILS PERCENT AUTO 0.2 % (0.3-3.8); HEMOGLOBIN 11.2 g/dL (12.9-17.7); LYMPHOCYTES ABSOLUTE AUTO 0.8 x10-3/uL (0.5-4.5); LYMPHOCYTES PERCENT AUTO 14.9 % (15.8-45.3); MEAN CORPUSCULAR HEMOGLOBIN 27.2 pg (27.0-33.3); MEAN CORPUSCULAR VOLUME 82.4 fL (80.8-98.7); MEAN PLATELET VOLUME 7.3 fL (6.7-11.0); MONOCYTES ABSOLUTE AUTO 0.7 x10-3/uL (0.0-1.2); MONOCYTES PERCENT AUTO 14.1 % (5.5-15.2); NEUTROPHILS ABSOLUTE AUTO 3.6 x10-3/uL (1.7-6.9); NEUTROPHILS PERCENT AUTO 70.8 % (40.3-71.8); PLATELET COUNT,PLT 272 x10(3)uL (117-477); RED BLOOD CELL COUNT 4.13 x10(6)uL (3.90-5.90)
[2023-05-05 06:51] LABS: BLOOD UREA NITROGEN,BUN 34 mg/dL (7-18); BUN/CREATININE RATIO 26.2 (9-20); CALCIUM 9.1 mg/dL (8.6-10.2); CARBON DIOXIDE,CO2 29 mmol/L (21-32); CHLORIDE,CL 101 mmol/L (100-110); CREATININE 1.3 mg/dL (0.70-1.30); EST CRCL DRUG DOSING (CG) 38.84 mL/min; ESTIMATED GFR 54 mL/min (>60); GLUCOSE RANDOM 246 mg/dL (80-116); POTASSIUM,K 3.9 mmol/L (3.5-5.3); SODIUM,NA 135 mmol/L (135-145)
[2023-05-05] MEDS: Azelastine Nasal Soln 30 ML Spray Bottle NASBOTH SCH (08:06)
[2023-05-05] MEDS: predniSONE 20 MG Tab PO SCH (08:06)
[2023-05-05] MEDS: Ferrous Sulfate 325 MG Tab PO SCH (08:07)
[2023-05-05] MEDS: Apixaban 2.5 MG Tab PO SCH ×2 (08:07→20:22)
[2023-05-05] MEDS: Tamsulosin 0.4 MG Cap.ER PO SCH (08:08)
[2023-05-05] MEDS: Folic Acid 1 MG Tab PO SCH (08:08)
[2023-05-05] MEDS: Potassium Chloride 20 MEQ Tab.ER PO SCH (08:09)
[2023-05-05] MEDS: Chondroitin/Glucosamine Cap PO SCH ×2 (08:09→20:22)
[2023-05-05] MEDS: Aspirin 81 MG Tab.EC PO SCH (08:09)
[2023-05-05] MEDS: Cholecalciferol (Vitamin D3) 25 MCG Tab PO SCH (08:10)
[2023-05-05] MEDS: Furosemide 40 MG Tab PO SCH (08:10)
[2023-05-05] MEDS: Magnesium Oxide 400 MG Tab PO SCH (08:10)
[2023-05-05] MEDS: Cyanocobalamin (Vitamin B12) 1,000 MCG Tab PO SCH (08:11)
[2023-05-05] MEDS: Insulin Glargine,Human Rec. Analog 100 Units/ML 3 ML Pen SUBCUT SCH (08:14)
[2023-05-05] MEDS: Amoxicillin/Clavulanate K 875-125 MG Tab PO SCH ×2 (09:09→20:21)
[2023-05-05] MEDS: Gabapentin 100 MG Cap PO SCH (20:21)
[2023-05-05] MEDS: Fluticasone NASAL Spray 16 GM Bottle NASBOTH SCH (20:22)
[2023-05-05] MEDS: atorvaSTATin 10 MG Tab PO SCH (20:22)
[2023-05-06 06:44] LABS: BASOPHILS PERCENT AUTO 0.3 % (0.3-3.8); HEMATOCRIT 37.2 % (38.3-50.1); HEMOGLOBIN 12.3 g/dL (12.9-17.7); LYMPHOCYTES ABSOLUTE AUTO 0.9 x10-3/uL (0.5-4.5); LYMPHOCYTES PERCENT AUTO 13.1 % (15.8-45.3); MEAN CORPUSCULAR HEMOGLOBIN 27.3 pg (27.0-33.3); MEAN CORPUSCULAR HGB CONC 33.2 g/dL (28.7-35.3); MEAN CORPUSCULAR VOLUME 82.3 fL (80.8-98.7); MEAN PLATELET VOLUME 7.4 fL (6.7-11.0); MONOCYTES ABSOLUTE AUTO 0.7 x10-3/uL (0.0-1.2); MONOCYTES PERCENT AUTO 9.9 % (5.5-15.2); NEUTROPHILS ABSOLUTE AUTO 5.4 x10-3/uL (1.7-6.9); NEUTROPHILS PERCENT AUTO 76.7 % (40.3-71.8); PLATELET COUNT,PLT 292 x10(3)uL (117-477); RED BLOOD CELL COUNT 4.52 x10(6)uL (3.90-5.90); RED CELL DISTRIBUTION WIDTH 19.3 % (12.4-15.0)
[2023-05-06] MEDS: Pantoprazole 40 MG Tab.CR PO SCH (06:51)
[2023-05-06 06:57] LABS: BLOOD UREA NITROGEN,BUN 37 mg/dL (7-18); BUN/CREATININE RATIO 26.4 (9-20); CALCIUM 9.3 mg/dL (8.6-10.2); CARBON DIOXIDE,CO2 28 mmol/L (21-32); CHLORIDE,CL 100 mmol/L (100-110); CREATININE 1.4 mg/dL (0.70-1.30); EST CRCL DRUG DOSING (CG) 36.07 mL/min; ESTIMATED GFR 49 mL/min (>60); GLUCOSE RANDOM 262 mg/dL (80-116); POTASSIUM,K 4.1 mmol/L (3.5-5.3); SODIUM,NA 138 mmol/L (135-145)
[2023-05-06] MEDS: Apixaban 2.5 MG Tab PO SCH (08:43)
[2023-05-06] MEDS: Cyanocobalamin (Vitamin B12) 1,000 MCG Tab PO SCH (08:43)
[2023-05-06] MEDS: Folic Acid 1 MG Tab PO SCH (08:43)
[2023-05-06] MEDS: Ferrous Sulfate 325 MG Tab PO SCH (08:43)
[2023-05-06] MEDS: Lutein/Minerals/Vitamin C/Vitamin E Acetate Cap PO SCH (08:44)
[2023-05-06] MEDS: Cholecalciferol (Vitamin D3) 25 MCG Tab PO SCH (08:44)
[2023-05-06] MEDS: predniSONE 20 MG Tab PO SCH (08:44)
[2023-05-06] MEDS: Potassium Chloride 20 MEQ Tab.ER PO SCH (08:44)
[2023-05-06] MEDS: Furosemide 80 MG Tab PO SCH (08:44)
[2023-05-06] MEDS: Azelastine Nasal Soln 30 ML Spray Bottle NASBOTH SCH (08:44)
[2023-05-06] MEDS: Aspirin 81 MG Tab.EC PO SCH (08:44)
[2023-05-06] MEDS: Chondroitin/Glucosamine Cap PO SCH (08:45)
[2023-05-06] MEDS: Magnesium Oxide 400 MG Tab PO SCH (08:45)
[2023-05-06] MEDS: Tamsulosin 0.4 MG Cap.ER PO SCH (08:45)
[2023-05-06] MEDS: Amoxicillin/Clavulanate K 875-125 MG Tab PO SCH (08:48)
[2023-05-06] MEDS: Insulin Glargine,Human Rec. Analog 100 Units/ML 3 ML Pen SUBCUT SCH (08:49)
[2023-05-06 10:23] VITALS: BP 137/79; PULSE 89
== END 2023-05-06 10:56 | disposition home health service (06) | DRG 194 ==
LOC: FB.ED 16:46 → FB.MS 19:23
PROVIDERS: ADMIT Family Medicine; ATTEND Family Medicine
DX: J18.9 Pneumonia, unspecified organism (principal); E87.20 Acidosis, unspecified; R79.82 Elevated C-reactive protein (CRP); R93.89 Abnormal findings on diagnostic imaging of other specified body structures; I12.9 Hypertensive chronic kidney disease with stage 1 through stage 4 chronic kidney disease, or unspecified chronic kidney disease; I13.0 Hypertensive heart and chronic kidney disease with heart failure and stage 1 through stage 4 chronic kidney disease, or unspecified chronic kidney disease; N18.9 Chronic kidney disease, unspecified; I48.91 Unspecified atrial fibrillation; M35.3 Polymyalgia rheumatica; G47.33 Obstructive sleep apnea (adult) (pediatric); I50.9 Heart failure, unspecified; Z91.048 Other nonmedicinal substance allergy status; E66.9 Obesity, unspecified; E11.22 Type 2 diabetes mellitus with diabetic chronic kidney disease; H91.90 Unspecified hearing loss, unspecified ear; E78.00 Pure hypercholesterolemia, unspecified; K59.09 Other constipation; M10.9 Gout, unspecified; M19.90 Unspecified osteoarthritis, unspecified site; I48.0 Paroxysmal atrial fibrillation; N18.30 Chronic kidney disease, stage 3 unspecified; Z20.822 Contact with and (suspected) exposure to COVID-19; G89.29 Other chronic pain; Z96.659 Presence of unspecified artificial knee joint; M54.9 Dorsalgia, unspecified; F10.10 Alcohol abuse, uncomplicated; Z79.01 Long term (current) use of anticoagulants; Z98.49 Cataract extraction status, unspecified eye; Z88.8 Allergy status to other drugs, medicaments and biological substances; Z79.82 Long term (current) use of aspirin; Z79.4 Long term (current) use of insulin; Z98.890 Other specified postprocedural states; I25.2 Old myocardial infarction; Z90.49 Acquired absence of other specified parts of digestive tract; Z87.891 Personal history of nicotine dependence; Z79.899 Other long term (current) drug therapy
CPT/HCPCS: 0241U; 36415; 70450; 71045; 71250; 80048; 80053; 81001; 82947; 83605; 83735; 83880; 84484; 85025; 85610; 86140; 87040; 93005; 94150; 96360; 97165; 99285; A9270-GY; J0456; J0696; J1815-GY; J3490; J7040; J7050; J7512

== ENCOUNTER 2023-08-17 12:01 | Emergency (ER) | payer OTHER, MEDICARE ==
[2023-08-17 13:37] LABS: BLOOD UREA NITROGEN,BUN 41 mg/dL (7-18); BUN/CREATININE RATIO 31.5 (9-20); CALCIUM 9.6 mg/dL (8.6-10.2); CARBON DIOXIDE,CO2 29 mmol/L (21-32); CHLORIDE,CL 103 mmol/L (100-110); CREATININE 1.3 mg/dL (0.70-1.30); EST CRCL DRUG DOSING (CG) 36.81 mL/min; ESTIMATED GFR 54 mL/min (>60); GLUCOSE RANDOM 122 mg/dL (80-116); SODIUM,NA 142 mmol/L (135-145)
[2023-08-17 13:43] LABS: A/G RATIO 0.6; ALANINE AMINOTRANSFERASE,ALT 16 U/L (12-36); ALBUMIN 2.4 g/dL (3.2-4.6); ALKALINE PHOSPHATASE 167 IU/L (56-112); ASPARTATE AMNIOTRANSFERASE,AST 11 IU/L (5-25); BILIRUBIN TOTAL 1.2 mg/dL (0.1-1.3); CREATINE KINASE,CK 42 IU/L (60-160); PROTEIN TOTAL,TP 6.5 g/dL (6.0-8.0)
[2023-08-17 13:47] LABS: LACTIC ACID 1.9 mmol/L (0.4-2.0)
[2023-08-17 13:48] LABS: BILIRUBIN,URINE NEGATIVE (NEGATIVE); GLUCOSE,URINE NORMAL (NORMAL); KETONES,URINE NEGATIVE (NEGATIVE); LEUKOCYTE ESTERASE,URINE NEGATIVE (NEGATIVE); NITRITE,URINE NEGATIVE (NEGATIVE); OCCULT BLOOD,URINE NEGATIVE (NEGATIVE); PROTEIN,URINE NEGATIVE (NEGATIVE); UROBILINOGEN,URINE NORMAL (NEGATIVE)
[2023-08-17 13:49] LABS: APPEARANCE,URINE CLEAR (CLEAR); BACTERIA,URINE FEW (NS); COLOR,URINE YELLOW (YELLOW); RBC,URINE 0-5 (0-5); SQUAMOUS EPITHELIAL CELLS,UR FEW (NS,R,O); WBC,URINE 0-5 (0-5)
[2023-08-17 13:52] LABS: BASOPHILS PERCENT AUTO 0.4 % (0.3-3.8); EOSINOPHILS ABSOLUTE AUTO 0.1 x10-3/uL (0.0-0.6); EOSINOPHILS PERCENT AUTO 0.7 % (0.1-6.8); HEMATOCRIT 35.3 % (38.3-50.1); HEMOGLOBIN 11.5 g/dL (12.9-17.7); LYMPHOCYTES ABSOLUTE AUTO 1.2 x10-3/uL (0.5-4.5); MEAN CORPUSCULAR HEMOGLOBIN 27.6 pg (27.0-33.3); MEAN CORPUSCULAR HGB CONC 32.7 g/dL (28.7-35.3); MEAN CORPUSCULAR VOLUME 84.5 fL (80.8-98.7); MEAN PLATELET VOLUME 7.2 fL (6.7-11.0); MONOCYTES ABSOLUTE AUTO 0.8 x10-3/uL (0.0-1.2); NEUTROPHILS ABSOLUTE AUTO 8.9 x10-3/uL (1.7-6.9); NEUTROPHILS PERCENT AUTO 80.9 % (40.3-71.8); PLATELET COUNT,PLT 355 x10(3)uL (117-477); RED BLOOD CELL COUNT 4.17 x10(6)uL (3.90-5.90); RED CELL DISTRIBUTION WIDTH 18.6 % (12.4-15.0)
[2023-08-17] MEDS: Sodium Chloride 0.9% 10 ML Syringe FLUSH PRN (16:30)
[2023-08-17] MEDS: Aspirin 81 MG Tab.Chew PO ONE (16:30)
[2023-08-17] MEDS: Nitroglycerin 0.4 MG Tab.SL SL ONE (16:31)
[2023-08-17] MEDS: Heparin Sodium 5,000 Units/ML Vial IVPUSH ONE (16:32)
[2023-08-17] MEDS: Metoprolol Tartrate 25 MG Tab PO ONE (16:47)
[2023-08-17] MEDS: Heparin Sodium/0.45% NaCl 500 ML IV SCH (16:48)
[2023-08-17 17:03] LABS: INFLUENZA A NAA NEGATIVE (NEGATIVE); INFLUENZA B NAA NEGATIVE (NEGATIVE)
[2023-08-17 17:05] LABS: CORONAVIRUS COVID-19 NAA NEGATIVE (NEGATIVE)
[2023-08-17 18:44] VITALS: BP 140/86; PULSE 96
== END 2023-08-17 18:40 ==
LOC: FB.ED 12:01
DX: I24.9 Acute ischemic heart disease, unspecified (principal); D64.9 Anemia, unspecified; E86.0 Dehydration; I12.9 Hypertensive chronic kidney disease with stage 1 through stage 4 chronic kidney disease, or unspecified chronic kidney disease; N18.9 Chronic kidney disease, unspecified; E11.22 Type 2 diabetes mellitus with diabetic chronic kidney disease; E78.00 Pure hypercholesterolemia, unspecified; I48.0 Paroxysmal atrial fibrillation; G47.33 Obstructive sleep apnea (adult) (pediatric); Z87.891 Personal history of nicotine dependence; Z79.01 Long term (current) use of anticoagulants; Z79.4 Long term (current) use of insulin; Z79.899 Other long term (current) drug therapy; Z91.048 Other nonmedicinal substance allergy status
CPT/HCPCS: 0240U; 36415; 71045; 80053; 81001; 82550; 83605; 84484; 85025; 93005; 93010; 96365; 96366; 99285; 99285-25; A9270-GY; J1644; J3490